=== PATIENT | female | born 1940 | race Hispanic/Latino ===

== ENCOUNTER 2018-05-22 11:48 | Inpatient (IN) | payer MEDICARE ==
[~2018-05-22] VITALS: Ht 154.9 cm; Wt 92.3 kg
[2018-05-22 12:28] LABS: BASOPHILS % (AUTO) 0.6 % (0.0-5.0); HEMATOCRIT 40.9 % (36-48); LYMPHOCYTES % (AUTO) 18.7 % (21.0-51.0); MEAN CORPUSCULAR HEMOGLOBIN 32.2 pg (27.0-33.0); MEAN CORPUSCULAR HGB CONC 33.6 g/dL (32.0-36.0); MONOCYTES % (AUTO) 10.9 % (3.0-13.0); NEUTROPHILS % (AUTO) 68.8 % (40.0-77.0); PLATELET COUNT (AUTO) 226 K/uL (130-400); RED BLOOD CELL COUNT(AUTO) 4.26 MIL/uL (4.00-5.50); RED CELL DISTRIBUTION WIDTH 12.8 % (11.0-15.5); WHITE BLOOD COUNT (AUTO) 10.8 K/uL (4.8-10.8)
[2018-05-22 12:36] LABS: CREATININE 1.4 mg/dL (0.5-1.5); POTASSIUM 3.6 mmol/L (3.5-5.1)
[2018-05-22 12:36] LABS: APPEARANCE,URINE Clear (CLEAR); BILIRUBIN,URINE Negative (NEGATIVE); COLOR,URINE Yellow (YELLOW); GLUCOSE, URINE (UA) Negative (NEGATIVE); KETONES,URINE Negative (NEGATIVE); LEUKOCYTE ESTERASE ,URINE Trace (NEGATIVE); NITRATE,URINE Negative (NEGATIVE); OCCULT BLOOD,URINE Moderate (NEGATIVE); PH,URINE 5.5 (5.0-8.0); PROTEIN,URINE Trace (NEGATIVE)
[2018-05-22 12:39] LABS: INR 0.92 (0.85-1.15); PARTIAL THROMBOPLASTIN TIME 27.7 SEC (26.3-35.5); PROTHROMBIN TIME 9.7 SEC (9.6-11.6)
[2018-05-22 12:42] LABS: ALBUMIN 3.5 g/dL (3.5-5.0); BILIRUBIN,TOTAL 0.4 mg/dL (0.2-1.0); TOTAL PROTEIN, SERUM 7.8 g/dL (6.0-8.3)
[2018-05-22 12:45] LABS: BACTERIA,URINE Rare /HPF (None Seen); SQUAMOUS EPITHELIAL CELL,UR Rare /HPF (0-2); WBC,URINE 0-1 /HPF (0-1)
[2018-05-22] MEDS ORDERED: ONDANSETRON HCL 4 MG/2 ML VIAL ONE (12:53)
[2018-05-22] MEDS ORDERED: SODIUM CHLORIDE 0.9% 1000ML 1,000 ML IV ONE (12:53)
[2018-05-22] MEDS ORDERED: MORPHINE SULFATE 4 MG/1ML SYG ONE (12:54)
[2018-05-22] MEDS ORDERED: ZOSYN 3.375GM+NS 50ML 50 ML IV ONE (14:00)
[2018-05-22] MEDS ORDERED: SODIUM CHLORIDE 0.9% 100 ML IV ONE (14:01)
[2018-05-22] MEDS ORDERED: MORPHINE SULFATE 5 MG/ML VIAL IV PRN (15:00)
[2018-05-22] MEDS ORDERED: ONDANSETRON HCL MDV 20ML 2 MG/ML VIAL IVP PRN (15:00)
[2018-05-22] MEDS ORDERED: LEVOFLOXACIN 500 MG/D5W 100 ML 100 ML ONE (16:33)
[2018-05-22 20:05] VITALS: BP 138/62
[2018-05-22] MEDS ORDERED: MORPHINE SULFATE 2 MG/ML 1ML SYG IV PRN (21:08)
[2018-05-22] MEDS: METRONIDAZOLE 500MG/100ML BAG 100 ML IV SCH (21:30)
[2018-05-22] MEDS: SODIUM CHLORIDE 0.9% 1000ML 1,000 ML IV SCH (21:30)
[2018-05-22 23:40] VITALS: BP 112/55
[2018-05-22] MEDS ORDERED: LOSA100T20 PO (23:47)
[2018-05-22] MEDS ORDERED: CETI10TA57 PO (23:47)
[2018-05-23 04:00] VITALS: BP 118/72
[2018-05-23] MEDS: METRONIDAZOLE 500MG/100ML BAG 100 ML IV SCH ×3 (04:58→20:45)
[2018-05-23 07:45] VITALS: BP_SYST 114; BP_SYST 117; BP_DIAS 51; BP_DIAS 56
[2018-05-23] MEDS: PANTOPRAZOLE SODIUM 40 MG TABLET.DR PO SCH ×2 (08:34→08:42)
[2018-05-23] MEDS: LOSARTAN 100 MG TABLET PO SCH (08:34)
[2018-05-23] MEDS ORDERED: ACETAMINOPHEN 325 MG TAB ONE (08:37)
[2018-05-23] MEDS: SODIUM CHLORIDE 0.9% 1000ML 1,000 ML IV SCH ×2 (08:41→20:45)
[2018-05-23] MEDS: ENOXAPARIN SODIUM 40 MG/0.4 ML SYRINGE SQ SCH (08:42)
[2018-05-23] MEDS ORDERED: CETIRIZINE HCL 5 MG TABLET PO PRN (09:00)
[2018-05-23 11:32] VITALS: BP 125/60
[2018-05-23 16:00] VITALS: BP 128/61
[2018-05-23] MEDS: ACETAMINOPHEN 325 MG TAB PO PRN (18:32)
[2018-05-23 19:58] VITALS: BP 153/70
[2018-05-24] VITALS (7 sets, daily range): BP systolic 104–140; BP diastolic 50–71
[2018-05-24] MEDS: METRONIDAZOLE 500MG/100ML BAG 100 ML IV SCH ×3 (04:49→21:11)
[2018-05-24 05:08] LABS: EOSINOPHILS % (AUTO) 4.9 % (0.0-8.0); MEAN CORPUSCULAR HEMOGLOBIN 32.1 pg (27.0-33.0); MEAN CORPUSCULAR HGB CONC 33.4 g/dL (32.0-36.0); MEAN CORPUSCULAR VOLUME 96.4 fL (79-99); MONOCYTES % (AUTO) 9.5 % (3.0-13.0); NEUTROPHILS % (AUTO) 41.6 % (40.0-77.0); PLATELET COUNT (AUTO) 199 K/uL (130-400); RED BLOOD CELL COUNT(AUTO) 3.63 MIL/uL (4.00-5.50); RED CELL DISTRIBUTION WIDTH 12.7 % (11.0-15.5); WHITE BLOOD COUNT (AUTO) 5.7 K/uL (4.8-10.8)
[2018-05-24 05:18] LABS: CREATININE 1.1 mg/dL (0.5-1.5); POTASSIUM 4.1 mmol/L (3.5-5.1)
[2018-05-24] MEDS: ENOXAPARIN SODIUM 40 MG/0.4 ML SYRINGE SQ SCH (08:52)
[2018-05-24] MEDS: LOSARTAN 100 MG TABLET PO SCH (08:52)
[2018-05-24] MEDS: PANTOPRAZOLE SODIUM 40 MG TABLET.DR PO SCH (08:52)
[2018-05-24] MEDS: SODIUM CHLORIDE 0.9% 1000ML 1,000 ML IV SCH ×2 (08:53→21:11)
[2018-05-24] MEDS ORDERED: LEVOFLOXACIN 500 MG/D5W 100 ML 100 ML IV SCH ×2 (09:00→19:00)
[2018-05-24] MEDS: ACETAMINOPHEN 325 MG TAB PO PRN (12:32)
[2018-05-25] MEDS: SODIUM CHLORIDE 0.9% 1000ML 1,000 ML IV SCH ×2 (02:03→12:12)
[2018-05-25 03:22] VITALS: BP 121/56
[2018-05-25] MEDS: METRONIDAZOLE 500MG/100ML BAG 100 ML IV SCH (04:57)
[2018-05-25 05:02] LABS: BASOPHILS % (AUTO) 1.2 % (0.0-5.0); EOSINOPHILS % (AUTO) 4.4 % (0.0-8.0); HEMATOCRIT 35.2 % (36-48); LYMPHOCYTES % (AUTO) 37.5 % (21.0-51.0); MEAN CORPUSCULAR HEMOGLOBIN 31.8 pg (27.0-33.0); MEAN CORPUSCULAR VOLUME 96.4 fL (79-99); MONOCYTES % (AUTO) 10.6 % (3.0-13.0); NEUTROPHILS % (AUTO) 46.3 % (40.0-77.0); PLATELET COUNT (AUTO) 185 K/uL (130-400); RED BLOOD CELL COUNT(AUTO) 3.65 MIL/uL (4.00-5.50); RED CELL DISTRIBUTION WIDTH 12.7 % (11.0-15.5); WHITE BLOOD COUNT (AUTO) 5.8 K/uL (4.8-10.8)
[2018-05-25 05:18] LABS: ALBUMIN 2.6 g/dL (3.5-5.0); BILIRUBIN,TOTAL 0.3 mg/dL (0.2-1.0); POTASSIUM 4.3 mmol/L (3.5-5.1); TOTAL PROTEIN, SERUM 6.1 g/dL (6.0-8.3)
[2018-05-25 07:00] VITALS: BP 167/85
[2018-05-25] MEDS: LOSARTAN 100 MG TABLET PO SCH (08:23)
[2018-05-25] MEDS: PANTOPRAZOLE SODIUM 40 MG TABLET.DR PO SCH (08:23)
[2018-05-25] MEDS: ENOXAPARIN SODIUM 40 MG/0.4 ML SYRINGE SQ SCH (08:24)
[2018-05-25] MEDS ORDERED: LEVO500T2 PO (08:57)
[2018-05-25] MEDS ORDERED: METR250T PO (08:57)
[2018-05-25] MEDS ORDERED: LEVOFLOXACIN 500 MG/D5W 100 ML 100 ML IV SCH ×2 (09:00)
[2018-05-25 11:00] VITALS: BP 147/79
== END 2018-05-25 13:23 | disposition home or self-care (01) | DRG 690 ==
LOC: EDH 11:48 → EDHIP 14:54 → 4CH 20:05 → 3AH 05-24 18:23
PROVIDERS: ADMIT Hospitalist; ATTEND Hospitalist
DX: N39.0 Urinary tract infection, site not specified (principal); K57.32 Diverticulitis of large intestine without perforation or abscess without bleeding; N17.9 Acute kidney failure, unspecified; I12.9 Hypertensive chronic kidney disease with stage 1 through stage 4 chronic kidney disease, or unspecified chronic kidney disease; E66.9 Obesity, unspecified; N18.9 Chronic kidney disease, unspecified; K29.70 Gastritis, unspecified, without bleeding; Z88.6 Allergy status to analgesic agent; Z88.7 Allergy status to serum and vaccine; Z68.38 Body mass index [BMI] 38.0-38.9, adult
CPT/HCPCS: 36415; 74176; 80048; 80053; 81001; 84484; 85025; 85610; 85730; 87088; 93005; J1650; J1956; J2270; J2405; J2543; J3490; J7030

== ENCOUNTER 2019-01-25 18:49 | Emergency (ER) | payer OTHER, MEDICARE ==
[~2019-01-25 18:49] MED LIST: CETI10TA57 PO; LEVO500T2 PO; LOSA100T58 PO; METR250T PO
[2019-01-25] MEDS ORDERED: SODIUM CHLORIDE 0.9% 500ML 500 ML IV ONE (19:23)
[2019-01-25 19:48] LABS: APPEARANCE,URINE CLOUDY (CLEAR); BASOPHILS % (AUTO) 0.6 % (0.0-5.0); BILIRUBIN,URINE NEGATIVE (NEGATIVE); COLOR,URINE YELLOW (YELLOW); EOSINOPHILS % (AUTO) 0.8 % (0.0-8.0); GLUCOSE, URINE (UA) NEGATIVE (NEGATIVE); HEMATOCRIT 41.8 % (36-48); KETONES,URINE NEGATIVE (NEGATIVE); LEUKOCYTE ESTERASE ,URINE LARGE (NEGATIVE); LYMPHOCYTES % (AUTO) 23.5 % (21.0-51.0); MEAN CORPUSCULAR HEMOGLOBIN 32.8 pg (27.0-33.0); MEAN CORPUSCULAR VOLUME 96.5 fL (79-99); MONOCYTES % (AUTO) 7.6 % (3.0-13.0); NEUTROPHILS % (AUTO) 67.5 % (40.0-77.0); NITRATE,URINE NEGATIVE (NEGATIVE); NUCLEATED RED BLOOD CELLS 0.1 % (0.0-0.19); OCCULT BLOOD,URINE MODERATE (NEGATIVE); PLATELET COUNT (AUTO) 223 K/uL (130-400); PROTEIN,URINE TRACE mg/dL (NEGATIVE); RED BLOOD CELL COUNT(AUTO) 4.33 MIL/uL (4.00-5.50); RED CELL DISTRIBUTION WIDTH 12.6 % (11.0-15.5); UROBILINOGEN,URINE 0.2 mg/dL (0.2-1.0); WHITE BLOOD COUNT (AUTO) 9.7 K/uL (4.8-10.8)
[2019-01-25 20:02] LABS: POTASSIUM 3.6 mmol/L (3.5-5.1)
[2019-01-25 20:03] LABS: BACTERIA,URINE Few /HPF (None Seen); MUCUS,URINE Few LPF (None Seen); SQUAMOUS EPITHELIAL CELL,UR Moderate /HPF (0-2); TRANSITIONAL EPI CELLS,URINE Rare /HPF (None Seen)
[2019-01-25 20:16] LABS: ALBUMIN 4.1 g/dL (3.5-5.0); BILIRUBIN,TOTAL 0.5 mg/dL (0.2-1.0); TOTAL PROTEIN, SERUM 8.2 g/dL (6.0-8.3)
[2019-01-25] MEDS ORDERED: AMOXICILLIN/POTASSIUM CLAV 875-125 TABLET PO ONE (20:50)
[2019-01-25] MEDS ORDERED: KETOROLAC TROMETHAMINE 15MG/ML ONE (20:50)
[2019-01-25] MEDS ORDERED: ONDANSETRON ODT 4 MG TAB ONE (20:51)
== END 2019-01-25 21:46 | disposition home or self-care (01) ==
LOC: EDH 18:49
DX: K57.32 Diverticulitis of large intestine without perforation or abscess without bleeding (principal); I10 Essential (primary) hypertension; Z88.6 Allergy status to analgesic agent; Z88.7 Allergy status to serum and vaccine
CPT/HCPCS: 36415; 74176; 80053; 81001; 82550; 83690; 84484; 85025; 96372; 99285; J1885; J7040

== ENCOUNTER → 2020-10-09 | Outpatient (CLI) | payer OTHER, MEDICARE | END | disposition home or self-care (01) | LOC: RAH 15:25 | PROVIDERS: ATTEND Internal Medicine | DX: M77.32 Calcaneal spur, left foot (principal); M85.872 Other specified disorders of bone density and structure, left ankle and foot; M25.572 Pain in left ankle and joints of left foot; M79.672 Pain in left foot | CPT/HCPCS: 73610; 73630 ==

== ENCOUNTER 2022-10-02 08:22 | Emergency (ER) | payer OTHER, MEDICARE ==
[~2022-10-02] VITALS: Ht 160 cm; Wt 90.7 kg
[2022-10-02] MEDS ORDERED: MORPHINE 2 MG SYG IVP ONE (09:00)
[2022-10-02] MEDS ORDERED: ONDANSETRON 4MG INJ IVP ONE (09:00)
[2022-10-02] MEDS ORDERED: PANTOPRAZOLE 40 MG/VIAL IVP ONE (09:00)
[2022-10-02] MEDS ORDERED: LACTATED RINGERS 1000ML 1,000 ML IV ONE (09:00)
[2022-10-02 09:06] LABS: BASOPHILS % (AUTO) 0.5 % (0.0-5.0); EOSINOPHILS % (AUTO) 1.1 % (0.0-8.0); HEMATOCRIT 42.1 % (36-48); LYMPHOCYTES % (AUTO) 20.8 % (21.0-51.0); MEAN CORPUSCULAR HEMOGLOBIN 31.5 pg (27.0-33.0); MEAN CORPUSCULAR HGB CONC 32.1 g/dL (32.0-36.0); MEAN CORPUSCULAR VOLUME 98.1 fL (79-99); MONOCYTES % (AUTO) 7.8 % (3.0-13.0); NEUTROPHILS % (AUTO) 69.4 % (40.0-77.0); PLATELET COUNT (AUTO) 222 K/uL (130-400); RED BLOOD CELL COUNT(AUTO) 4.29 MIL/uL (4.00-5.50); RED CELL DISTRIBUTION WIDTH 12.1 % (11.0-15.5); WHITE BLOOD COUNT (AUTO) 8.3 K/uL (4.8-10.8)
[2022-10-02 09:09] LABS: APPEARANCE,URINE CLEAR (CLEAR); BILIRUBIN,URINE NEGATIVE (NEGATIVE); COLOR,URINE LIGHT-YELLOW (YELLOW); GLUCOSE, URINE (UA) NEGATIVE (NEGATIVE); KETONES,URINE NEGATIVE (NEGATIVE); LEUKOCYTE ESTERASE ,URINE NEGATIVE Leu/uL (NEGATIVE); NITRATE,URINE NEGATIVE (NEGATIVE); OCCULT BLOOD,URINE SMALL (NEGATIVE); PH,URINE 5.5 (5.0-8.0); PROTEIN,URINE NEGATIVE (NEGATIVE); UROBILINOGEN,URINE 0.2 mg/dL (0.2-1.0)
[2022-10-02 09:23] LABS: ALBUMIN 3.8 g/dL (3.5-5.0); TOTAL PROTEIN, SERUM 7.8 g/dL (6.0-8.3)
[2022-10-02 09:30] LABS: BACTERIA,URINE FEW /HPF (None Seen); MUCUS,URINE RARE LPF (None Seen); SQUAMOUS EPITHELIAL CELL,UR RARE /HPF (0-2); WBC,URINE 0-1 /HPF (0-1)
[2022-10-02] MEDS ORDERED: IOHEXOL 350 MG/ML 100ML INFUS..BTL IV ONE (10:07)
[2022-10-02] MEDS ORDERED: ZOSYN 3.375GM +NS 50ML IVPB STA (10:56)
[2022-10-02 11:07] VITALS: BP 145/76
[2022-10-02] MEDS ORDERED: METR-172 PO (11:21)
[2022-10-02] MEDS ORDERED: CIPR-278 PO (11:21)
== END 2022-10-02 12:29 | disposition home or self-care (01) ==
LOC: EDH 08:22
DX: K57.32 Diverticulitis of large intestine without perforation or abscess without bleeding (principal); N28.1 Cyst of kidney, acquired; Z79.899 Other long term (current) drug therapy; Z88.6 Allergy status to analgesic agent; Z88.7 Allergy status to serum and vaccine; Z88.8 Allergy status to other drugs, medicaments and biological substances
CPT/HCPCS: 99285; 74176; 96365; 96375; 96361; 82550; 84484; 80053; 83690; 85025; 81001; 36415; J7120; J2405; J2543; C9113; Q9967

== ENCOUNTER → 2023-03-10 | Outpatient (CLI) | payer OTHER, MEDICARE ==
[~2023-03-10] MED LIST changes: +CIPR-278 PO; -LOSA100T58 PO; +LOSA100T59 PO; +METR-172 PO
== END | disposition home or self-care (01) ==
LOC: RAH 09:49
PROVIDERS: ATTEND Internal Medicine
DX: R06.02 Shortness of breath (principal); I10 Essential (primary) hypertension
CPT/HCPCS: 71046

== ENCOUNTER → 2024-08-04 | Outpatient (CLI) | payer OTHER, MEDICARE ==
--- NOTE | 2024-08-04 16:50 | HMCIMG ---
CHEST 2VWS HISTORY: Dyspnea COMPARISON: 03/10/2023 FINDINGS: Frontal and lateral projections of the chest were obtained. There is no acute pulmonary infiltrates or failure. The heart is not enlarged. Prominent interstitial markings are seen. There is mild aortic calcification. Degenerative changes are seen of the thoracolumbar spine. IMPRESSION: 1. No acute pulmonary infiltrates.
== END | disposition home or self-care (01) ==
LOC: RAH 12:46
PROVIDERS: ATTEND Nurse Practitioner Family
DX: J84.9 Interstitial pulmonary disease, unspecified (principal); R06.09 Other forms of dyspnea; I35.8 Other nonrheumatic aortic valve disorders; M47.815 Spondylosis without myelopathy or radiculopathy, thoracolumbar region
CPT/HCPCS: 71046

== ENCOUNTER → 2024-09-08 | Outpatient (CLI) | payer OTHER, MEDICARE ==
--- NOTE | 2024-09-08 15:19 | HMCIMG ---
CT CHEST W/O CONTRAST HISTORY: Signs and symptoms involving the circulatory and respiratory system. COMPARISON: None TECHNIQUE: Multiple sequential axial images of the chest were obtained from the thoracic inlet through upper abdomen. Patient was not given contrast through intravenous route. FINDINGS: There is no evidence of pulmonary nodule or parenchymal disease. There are mild interstitial fibrosis. There may be bilateral parapelvic renal cysts. Coronary arterial calcifications are seen. No pleural effusion or pericardial effusion is seen. There is no evidence of pneumothorax. There are normal size mediastinal and hilar lymph nodes. The heart is not enlarged. Degenerative changes of the thoracolumbar spine are present. There is no evidence of adrenal nodule. IMPRESSION: 1. No evidence of pulmonary nodule or effusion is seen. Mild interstitial fibrosis. CT was performed with one or more following dose reduction techniques: automated exposure control, adjustment of the mA and kv according to patient's size, or use of a iterative reconstruction technique.
== END | disposition home or self-care (01) ==
LOC: CANSCHCLI → RAH 13:52
PROVIDERS: ATTEND Internal Medicine
DX: J84.10 Pulmonary fibrosis, unspecified (principal); I25.10 Atherosclerotic heart disease of native coronary artery without angina pectoris; R09.89 Other specified symptoms and signs involving the circulatory and respiratory systems; Z87.891 Personal history of nicotine dependence; M47.815 Spondylosis without myelopathy or radiculopathy, thoracolumbar region
CPT/HCPCS: 71250

== ENCOUNTER → 2024-11-30 | Outpatient (CLI) | payer MEDICARE, OTHER ==
[~2024-11-30] MED LIST changes: +DiphenhydrAMINE HCL 50 MG/ML VIAL ONE; +IOHEXOL 350 MG/ML 100ML INFUS..BTL IV ONE; +Solu-medROL 125MG VIAL ONE; +metoPROLOL tartRATE 1 MG/ML 5ML VIAL IV ONE
--- NOTE | 2024-11-30 15:11 | HMCIMG ---
CT CARDIAC ANGIO W/CONT. CCTA HISTORY: Chest pain COMPARISON: None TECHNIQUE: Multiple sequential axial images of the chest were obtained along with the CT angiogram of the chest study. Patient was given 100 cc of Omnipaque through intravenous route. FINDINGS: There is no evidence of pulmonary nodule or parenchymal disease. No pleural effusion or pericardial effusion is seen. There is no evidence of pneumothorax. There are normal size mediastinal and hilar lymph nodes. The heart is not enlarged. Degenerative changes of the thoracolumbar spine are present. IMPRESSION: 1. No evidence of pulmonary nodule or effusion is seen. Please see CT angiogram report of coronary arteries.
== END | disposition home or self-care (01) ==
LOC: RAH 09:41
PROVIDERS: ATTEND Student in an Organized Health Care Education/Training Program
DX: R07.9 Chest pain, unspecified (principal); M47.815 Spondylosis without myelopathy or radiculopathy, thoracolumbar region
CPT/HCPCS: 75574; J2919; J1200; J3490 ×2; Q9967

== ENCOUNTER → 2024-12-02 | Outpatient (CLI) | payer OTHER ==
[~2024-12-02] MED LIST changes: -DiphenhydrAMINE HCL 50 MG/ML VIAL ONE; -IOHEXOL 350 MG/ML 100ML INFUS..BTL IV ONE; -Solu-medROL 125MG VIAL ONE; -metoPROLOL tartRATE 1 MG/ML 5ML VIAL IV ONE
--- NOTE | 2024-12-07 19:28 | CARDIOLOGY ---
RAD REPORT: CORNARY CT ANGIO RADIOLOGY REPORT: CORONARY CT ANGIOGRAPHY DATE: Dec 07, 2024 QUALITY: Excellent CLINICAL HISTORY AND INDICATION: [ coronary calcification ] TECHNIQUE: After obtaining a preliminary geological scout image, contrast imaging performed on an [place] [id number] scanner. A dedicated, limited window, coronary imaging protocol was used, with single breath-hold, retrospective ECG gating, and automated arrhythmia rejection. 100 cc of low osmolar contrast agent: Omnipaque 350 was delivered via a 18-gauge IV catheter in the right antecubital fossa, using a power injector and followed by 60 cc of normal saline bolus as a chaser. Collimated images were reformatted at 0.5 mm intervals, and sent to an offline independent workstation for interpretation, using 3D anatomic reconstructions: Curved multiplanar reconstructions, maximum intensity projections, and multiplanar imaging. 10 mg IV metoprolol was administered prior to scanning. 0.8 mg SL nitroglycerin was given. CORONARY ARTERY DESCRIPTIONS: The coronary arteries arise in normal position. Left main coronary artery: Normal caliber vessel that bifurcates into the LAD and LCx. No stenosis. Left anterior descending coronary artery: Normal caliber vessel and gives rise to diagonal and septal branches. No stenosis. Left circumflex coronary artery: Normal caliber, nondominant and gives rise to a large OM branch. No stenosis. Right coronary artery: Large, dominant vessel giving rise to the PL and PDA branches. No stenosis. CAD-RADs: 0, absence of CAD. Thoracic Aorta: Normal diameter. Pam Barahona MD Cardiovascular Disease [facility] PAM BARAHONA MD Dec 07, 2024 19:28
--- NOTE | 2024-12-08 11:55 | HMCSR ---
APPROVED REPORT Laterality: Bilateral Indications Atherosclerosis VELOCITY AND DOPPLER WAVEFORM ANALYSIS TELECOM MANAGER (R) 111.1cm/sec, Triphasic, TELECOM MANAGER (L) 169.7cm/sec, Triphasic, Prof Fem Art. (R) 72.7cm/sec, Triphasic, Prof Fem Art. (L) 76.3cm/sec, Triphasic, Fem Art Prox. (R) 136.7cm/sec, Triphasic, Fem Art Prox. (L) 132.5cm/sec, Triphasic, Fem Art Mid. (R) 106.5cm/sec, Triphasic, Fem Art Mid. (L) 96.0cm/sec, Triphasic, Fem Art Dist (R) 82.5cm/sec, Triphasic, Fem Art Dist. (L) 107.7cm/sec, Triphasic, Pop Art(AK) (R) 64.2cm/sec, Biphasic, Pop Art (AK) (L) 64.4cm/sec, Biphasic, Pop Art (Fossa)(R) 54.5cm/sec, Biphasic, Pop Art (Fossa) (L) 65.3cm/sec, Biphasic, Pop Art(BK) (R) 78.3cm/sec, Biphasic, Pop Art (BK) (L) 58.7cm/sec, Biphasic, GAMBRELER HELPER Dist. (R) 90.3cm/sec, Biphasic, GAMBRELER HELPER Dist. (L) 53.0cm/sec, Biphasic, Per Art Dist. (R) 61.4cm/sec, Biphasic, Per Art Dist. (L) 66.1cm/sec, Biphasic, SEAN Dist. (R) 67.1cm/sec, Biphasic, SEAN Dist. (L) 74.2cm/sec, Biphasic, Technologist Impression No evidence of significant arterial insufficiency of bilateral lower extremities. Multiphasic waveforms seen in the bilateral lower extremities. Conclusion No evidence of significant arterial insufficiency of bilateral lower extremities. Multiphasic waveforms seen in the bilateral lower extremities. Conclusion No evidence of significant arterial insufficiency of bilateral lower extremities. Multiphasic waveforms seen in the bilateral lower extremities.
--- NOTE | 2024-12-08 12:00 | HMCSR ---
APPROVED REPORT EXAM: Two-dimensional and M-mode echocardiogram with Doppler and color Doppler. INDICATION ICD: R06.00 Dyspnea 2D Dimensions RVDd3.7 cmLVEF(%)41.5 (>50%)LVED Vol(simp.)93.0 mL IVSd1.1 (0.7-1.1cm)FS(%)20 %LVES Vol(simp.)53.0 mL LVDd4.6 (3.8-5.6cm)Ao Root(2D)3.1 (2.0-3.7cm)LVEF(%, simp.)43 % PWd0.9 (0.7-1.1cm)LVOT diam1.8 (1.8-2.4cm)LA ESV INDEX (BP)46.11 mL/m2 LVDs3.7 (2.5-4.0cm)IVC diam1.9 cm Aortic Valve AoV Vmax1.4 m/Princess Peak GR8.3 mmHgLVOT Vmax0.8 m/s AoV VTI0.3 mAo Mean GR4.1 mmHgLVOT VTI0.21 m CHEY (VMAX)1.6 cm2Al P1/2T763 msAVA (VTI) 1.6 cm2 Mitral Valve MV E Wbpy687.0 cm/sDECEL Aomj682 msMV Peak GR8 mmHg MV A Bccv370.5 cm/sP 1/2 T65 msMV Mean GR3 mmHg E/A ratio0.9MVA (PHT)3.4 cm2MVA (VTI)1.4 cm2 MR Max PG94 mmHg TDI E/E' Wlkmvd00.9E/E' Waemxuu50.9 Pulmonary Valve PV Vmax0.9 m/sPV VTI0.26 mPV Mean GR2 mmHg PV Peak GR3.3 mmHgPI End Susi. Klever 0.9 cm/s Tricuspid Valve TR Vmax2.6 m/sRAP (EST) 8 bbRzPEQZ98.7 mmHg TR Peak GR26.7 mmHg Left Ventricle Left ventricular cavity size is normal. There is borderline to mild left ventricular hypertrophy. LVE F is 40-45%. Grade 1 diastolic dysfunction. Right Ventricle The right ventricle is normal size. Right ventricular systolic function is mildly reduced. Atria The left atrium is moderately dilated. The right atrium size appears normal. Aortic Valve Aortic valve is trileaflet. Aortic valve leaflets are sclerotic but open well. Trace aortic regurgita tion. Calculated aortic valve area is 1.6 cm2 with maximum pressure gradient of 8 mmHg and mean press ure gradient of 4 mmHg. Mitral Valve Mitral annular calcification is moderate. Mitral valve leaflets are sclerotic but open well. Mitral r egurgitation is mild. Calculated mitral valve area is 1.4 cm2 with maximum pressure gradient of 8 mmH g and mean pressure gradient of 3 mmHg. Tricuspid Valve The tricuspid valve leaflets appear normal. There is trace to mild tricuspid regurgitation. Right violet tricular systolic pressure is estimated at 30-40 mmHg. Pulmonic Valve The pulmonic valve leaflets appears normal. There is trace pulmonic valvular regurgitation. Great Vessels The aortic root appears normal in size. The IVC is normal in size and collapses >50% with inspiration . Pericardium No pericardial effusion. Conclusion Left ventricular cavity size is normal. LVEF is 40-45%. Grade 1 diastolic dysfunction. The right ventricle is normal size. Right ventricular systolic function is mildly reduced. The left atrium is moderately dilated. The right atrium size appears normal. Mitral regurgitation is mild. There is trace to mild tricuspid regurgitation. Right ventricular systolic pressure is estimated at 30-40 mmHg. No pericardial effusion.
== END | disposition home or self-care (01) ==
LOC: SHCH 08:55
PROVIDERS: ATTEND Student in an Organized Health Care Education/Training Program
DX: I08.3 Combined rheumatic disorders of mitral, aortic and tricuspid valves (principal); R06.09 Other forms of dyspnea; I70.203 Unspecified atherosclerosis of native arteries of extremities, bilateral legs; I70.219 Atherosclerosis of native arteries of extremities with intermittent claudication, unspecified extremity
CPT/HCPCS: 93306; 93925

== ENCOUNTER → 2025-01-11 | Outpatient (CLI) | payer OTHER ==
[~2025-01-11] MED LIST changes: +GADOTERATE MEGLUMINE 10 MMOL/20 ML VIAL IV ONE
--- NOTE | 2025-01-11 15:27 | HMCIMG ---
Exam Type: MR BRAIN WWO CON Clinical Information: R56.9 Unspecified convulsions Comparison: None Technique: T1 weighed sagittal, T1-weighted axial, T2-weighted axial, diffusion, apparent diffusion, exponential diffusion weighted axial, T2-weighted FLAIR sagittal, coronal and axial images of the brain. Findings: Examination done after the administration of Clariscan, 15 cc IV, no complications. CSF spaces are preserved. Ventricular spaces are preserved as well. Multiple punctate and patchy foci of increased signal T2-weighted FLAIR images scattered diffusely throughout the deep white matter centrum semiovale and coronal radiata on the T2-weighted FLAIR images, consistent with chronic small vessel ischemic changes. No similar-appearing focus present within the deep white matter of the cerebellum or brainstem. No acute intra-or extra-axial fluid collections are seen. There is no mass effect or shift of midline structures. Diffusion-weighted sequences demonstrate no evidence of acute pathology. Specifically, there is no evidence of acute TIA or stroke. The pituitary gland is unremarkable. The stalk is midline and the sella turcica shows no significant abnormalities. The signal intensity of the skull base and the marrow of the actual bony structures of the skull are unremarkable. The acoustic canals show no significant abnormalities. The orbits and the eye globes are preserved. The paranasal sinuses are clear. After contrast administration, there is no abnormal enhancement. IMPRESSION: 1. CHRONIC SMALL VESSEL ISCHEMIC CHANGES. NO ACUTE INFARCTS OR ISCHEMIC EVENTS NOTED AT THIS TIME.
== END | disposition home or self-care (01) ==
LOC: RAH 12:00
PROVIDERS: ATTEND Psychiatry & Neurology Neurology
DX: I67.82 Cerebral ischemia (principal); R56.9 Unspecified convulsions
CPT/HCPCS: 70553; A9575

== ENCOUNTER 2025-02-02 01:08 | Inpatient (IN) | payer OTHER, MEDICAID ==
[~2025-02-02] VITALS: Ht 154.9 cm; Wt 90.3 kg
[~2025-02-02 01:08] MED LIST changes: -GADOTERATE MEGLUMINE 10 MMOL/20 ML VIAL IV ONE
[2025-02-02 01:31] LABS: BASOPHILS # (AUTO) 0.04 K/uL (0.00-0.20); BASOPHILS % (AUTO) 0.5 % (0.0-5.0); EOSINOPHILS # (AUTO) 0.17 K/uL (0.00-0.70); EOSINOPHILS % (AUTO) 2.2 % (0.0-8.0); HEMATOCRIT 40.4 % (36-48); IMMATURE GRANULOCYTE ABSOLUTE 0.01 K/uL (0-1); LYMPHOCYTES # (AUTO) 2.6 K/uL (1.0-4.8); LYMPHOCYTES % (AUTO) 33.6 % (21.0-51.0); MEAN CORPUSCULAR HEMOGLOBIN 32.4 pg (27.0-33.0); MEAN CORPUSCULAR HGB CONC 32.9 g/dL (32.0-36.0); MEAN CORPUSCULAR VOLUME 98.5 fL (79-99); MONOCYTES # (AUTO) 0.8 K/uL (0.1-1.0); MONOCYTES % (AUTO) 10.2 % (3.0-13.0); NEUTROPHILS # (AUTO) 4.1 K/uL (1.8-7.7); NEUTROPHILS % (AUTO) 53.4 % (40.0-77.0); PLATELET COUNT (AUTO) 249 K/uL (130-400); RED CELL DISTRIBUTION WIDTH 12.5 % (11.0-15.5); WHITE BLOOD COUNT (AUTO) 7.7 K/uL (4.8-10.8)
[2025-02-02 01:39] LABS: CREATININE 1.2 mg/dL (0.5-1.0); POTASSIUM 4.5 mmol/L (3.5-5.1)
[2025-02-02 01:57] LABS: B-TYPE NATRIURETIC PEPTIDE 69 pg/mL (0-100)
--- NOTE | 2025-02-02 02:06 | ERN ---
General Chief Complaint: Shortness of Breath Stated Complaint: HEART RATE 50'S, HIGH B/P, SHORTNESS OF BREATH Time Seen by MD: 01:23 Source: patient, family History of Present Illness Initial Comments Patient is an 84-year-old female who has a past medical history of hypertension and atrial fibrillation. She recently had her medications readjusted by her user support analyst supervisor. She was taking amiodarone 200 mg a day and that was decreased to 100 mg a day. Her losartan was stopped and she was placed on telmisartan. She was also started on metoprolol 25 mg q.a.m.. She was given strict instructions to come to the emergency room if her heart rate fell below 60. The patient's heart rate fell down below 50 and so her family brought her here for evaluation. Currently the patient is in normal sinus rhythm at a rate of 56 with no ischemic changes. Allergies: Coded Allergies: aspirin (Unverified Allergy, Unknown, 05/22/18) iodine (Unverified Allergy, Unknown, HALLUCINATIONS, 10/02/22) tetanus toxoid, adsorbed (Unverified Allergy, Unknown, 05/22/18) Home Meds Active Scripts Metronidazole (Metronidazole) 500 Mg Tablet, 500 MG PO BID for 7 Days, #14 TAB Prov:ANKIT RIVAS MD 10/02/22 Ciprofloxacin HCl (Cipro) 500 Mg Tablet, 500 MG PO BID for 7 Days, #14 TAB Prov:ANKIT RIVAS MD 10/02/22 Metronidazole (Flagyl) 250 Mg Tablet, 250 MG PO TID for 5 Days, #15 TAB Prov:DONATO CHRISTY 05/25/18 Levofloxacin (Levaquin) 500 Mg Tablet, 500 MG PO DAILY for 5 Days, #5 TAB Prov:DONATO CHRISTY 05/25/18 Reported Medications Cetirizine HCl (Cetirizine HCl) 10 Mg Tablet, 10 MG PO HSPRN PRN for ITCHING, TAB 05/22/18 Losartan Potassium (Losartan Potassium) 100 Mg Tablet, 100 MG PO DAILY, TAB 05/22/18 Past Medical History Past Medical History: A-Fib, Hypertension Past Surgical History: None Social History Social History: Negative Constitutional: (-) chills, (-) diaphoresis, (-) fever, (-) malaise, (-) weakness, (-) other documentation EENTM: (-) eye pain, (-) blurred vision, (-) tearing, (-) double vision, (-) ear pain, (-) ear discharge, (-) nose pain, (-) nose congestion, (-) throat pain, (-) Throat swelling, (-) mouth pain, (-) tooth pain, (-) mouth swelling, (-) other documentation Respiratory: (-) cough, (-) orthopnea, (-) short of breath, (-) stridor, (-) wheezing, (-) other documentation Cardiovascular: (-) chest pain, (-) edema, (-) palpitations, (-) syncope, (-) dyspnea on exertion, (-) other documentation Gastrointestinal/Abdominal: (-) nausea, (-) vomiting, (-) diarrhea, (-) abdominal pain, (-) abdominal distention, (-) constipation, (-) rectal bleeding, (-) dark stool/melena, (-) other documentation Musculoskeletal: (-) Neck pain, (-) back pain, (-) Flank Pain, (-) joint pain, (-) joint swelling, (-) muscle pain, (-) muscle stiffness, (-) gout, (-) other documentation Skin: (-) laceration, (-) contusion, (-) abrasion, (-) abscess, (-) rash, (-) change in color, (-) change in hair, (-) change in nails, (-) diaphoresis, (-) dryness, (-) other documentation Neuro: (-) altered mental status, (-) headache, (-) syncope, (-) paralysis, (-) numbness, (-) seizure, (-) pre-existing deficit, (-) tremors, (-) weakness, (-) dizziness, (-) slurred speech, (-) vertigo, (-) other documentation Physical Exam General Appearance: (+) no apparent distress Orientation: (+) alert, (+) oriented x 3 Head/Face Trauma: No Eye: bilateral eye normal inspection, bilateral eye PERRL, bilateral eye EOMI Ear, Nose, Throat: (+) hearing grossly normal, (+) normal ENT inspection Neck: (+) normal inspection, (+) supple, (+) no JVD Respiratory: (+) chest non-tender, (+) lungs clear, (+) well ventilated Heart: (+) regular, (+) no gallop, (+) murmur Vascular: (+) no edema Gastrointestinal: (+) soft, (+) non-tender Results Laboratory and Microbiology Lab and Micro Result Laboratory Tests Test 02/02/25 01:22 White Blood Count 7.7 K/uL (4.8-10.8) Red Blood Count 4.10 MIL/uL (4.00-5.50) Hemoglobin 13.3 g/dL (12.0-16.0) Hematocrit 40.4 % (36-48) Mean Corpuscular Volume 98.5 fL (79-99) Mean Corpuscular Hemoglobin 32.4 pg (27.0-33.0) Mean Corpuscular Hemoglobin Concent 32.9 g/dL (32.0-36.0) Red Cell Distribution Width 12.5 % (11.0-15.5) Platelet Count 249 K/uL (130-400) Mean Platelet Volume 11.3 fL (7.5-10.5) H Immature Granulocyte % (Auto) 0.1 % (0-1) Neutrophils (%) (Auto) 53.4 % (40.0-77.0) Lymphocytes (%) (Auto) 33.6 % (21.0-51.0) Monocytes (%) (Auto) 10.2 % (3.0-13.0) Eosinophils (%) (Auto) 2.2 % (0.0-8.0) Basophils (%) (Auto) 0.5 % (0.0-5.0) Neutrophils # (Auto) 4.1 K/uL (1.8-7.7) Lymphocytes # (Auto) 2.6 K/uL (1.0-4.8) Monocytes # (Auto) 0.8 K/uL (0.1-1.0) Eosinophils # (Auto) 0.17 K/uL (0.00-0.70) Basophils # (Auto) 0.04 K/uL (0.00-0.20) Absolute Immature Granulocyte (auto 0.01 K/uL (0-1) Nucleated Red Blood Cells 0.0 % (0.0-0.19) Sodium Level 140 mmol/L (136-145) Potassium Level 4.5 mmol/L (3.5-5.1) Chloride Level 105 mmol/L (101-111) Carbon Dioxide Level 28 mmol/L (21-32) Blood Urea Nitrogen 16 mg/dL (7-18) Creatinine 1.2 mg/dL (0.5-1.0) H Glomerular Filtration Rate Calc 44 mL/min (>90) Random Glucose 108 mg/dL (70-105) H Total Calcium 9.4 mg/dL (8.5-10.1) Total Creatine Kinase 235 U/L (21-232) #H Troponin I High Sensitivity 20 ng/L (4-50) B-Type Natriuretic Peptide 69 pg/mL (0-100) MDM A standard cardiac labs have been sent. Chest x-ray ordered. I have talked to the patient's daughter as the patient seems fine except for high blood pressure. I would hate to admit the patient to the hospital simply because a drop in her heart rate that is clinically without consequences. I will try giving the patient some IV hydralazine for her blood pressure. I have discussed the patient with Dr. Sol as who is on-call for the patient's user support analyst supervisor who is Dr. Barahona. He recommends holding the metoprolol as the patient's heart rate is now below 55. We can increase the telmisartan by 20 mg, or start amlodipine 5 mg. I I further discussed the patient with the hospitalist who have agreed to admit the patient and watch her vital signs while we make these medication changes, mainly because current heart patient's heart rate is now in the low 50s. ED Course Orders Procedure Category Date Status Time Vital Signs Per CPOE 02/02/25 Transmitted Routine 01:23 B-Type Natriuretic LAB 02/02/25 Complete Peptide 01:23 Chest 1vw RAD 02/02/25 Taken 01:23 12 Lead Ekg Tracing- EKG 02/02/25 Logged Technical 01:23 Oxygen By Nc/Pulse Ox CPOE 02/02/25 Transmitted 01:23 Maintain Iv CPOE 02/02/25 Transmitted 01:23 Iv Insertion CPOE 02/02/25 Transmitted 01:23 Cardiac Monitoring CPOE 02/02/25 Transmitted 01:23 Pulse Oximetry With CPOE 02/02/25 Transmitted Vs And Prn 01:23 Cbc With Differential LAB 02/02/25 Complete 01:23 Activity: Br W/Brp CPOE 02/02/25 Transmitted With Assist 01:23 Creatine Kinase, Total LAB 02/02/25 Complete 01:23 Troponin I High LAB 02/02/25 Complete Sensitivity 01:23 Urinalysis Profile LAB 02/02/25 Logged 01:23 Basic Metabolic Panel LAB 02/02/25 Complete 01:23 Hydralazine 20mg Inj PHA 02/02/25 Complete (Apresoline 20mg In 02:30 Current Medications Medications (Trade) Dose Ordered Sig/Shelli Route PRN Reason Start Time Stop Time Status Last Admin Dose Admin Hydralazine HCl (APRESOLine 20MG INJ) 20 mg ONCE ONCE IV 02/02/25 02:30 02/02/25 02:36 DC Vital Signs Date Time Temp Pulse Resp B/P (MAP) Pulse Ox O2 Delivery O2 Flow Rate FiO2 02/02/25 02:46 98.6 48 20 161/64 99 Room Air* 0 N/A Nasal Cannula* 02/02/25 01:55 98.4 52 18 158/76 98 Room Air* 0 21 Nasal Cannula* 02/02/25 01:09 98.2 60 20 186/69 98 Room Air 0 DX & DISP Disposition: Inpatient Departure Impression: Primary Impression: Bradycardia Additional Impression: Hypertension Condition: Stable Referrals: OWEN MOSES MD (PCP) SONY RAMIRES MD Feb 02, 2025 02:06
[2025-02-02] MEDS: acetaMINOPHEN 500 MG TABLET PO ONE (03:57)
[2025-02-02] MEDS: hydrALAZine 20MG/ML VIAL IV ONE (03:58)
--- NOTE | 2025-02-02 04:04 | NUR ---
JANIS PASTRANA AT BEDSIDE TO EVALUATE PATIENT FOR ADMISSION PER JANIS AUTOMATIC SERGING MACHINE OPERATOR HOLD HYDRALAZINE AT THIS TIME AND ONLY ADMINISTER IF SYSTOLIC BP IS GREATER THAN 170 SYSTOLIC
--- NOTE | 2025-02-02 04:25 | HP ---
[facility] HISTORY AND PHYSICAL Date of Service: Feb 02, 2025 Time of Service: 04:25 Attending/supervising physician: Dr. Garcia and Dr. Barahona PCP: Dr. Ambrose Prince Outpatient specialist: [facility] HISTORY OF PRESENT ILLNESS: Ms. López is a 84-year-old female with a history of hypertension and AFib who presented to [facility] ED for evaluation of symptomatic bradycardia and hypertension. Daughter at bedside reported that her medications were readjusted by her ten pin bowling centre manager. She was taking amiodarone 200 mg a day and was decreased to 100 mg a day due to the amiodarone causing the patient to have a shaking side effects. Her losartan was stopped and she was placed on telmisartan. The patient was restarted on metoprolol after Dr. Barahona had removed it. The daughter at bedside reported that she is to take [id number] mg in the morning and if her blood pressure and heart rate are still high she could take metoprolol in the evening also. The daughter reported that her sister was giving the [id number] mg twice a day, and she gave it last night on 02/01/2025. The daughter reported she was given strict instructions to return t o the ED if her heart rate falls below 60 beats per minute. The patient's heart rate went down to 50s, and fell sick, therefore her daughter brought her for evaluation. On arrival to ED the patient's heart rate was 56 bpm, but dropped as low as 40s (44 bpm). EKG: Sinus bradycardia, heart rate 56 bpm. Off note: The patient was recently admitted to [facility] [place] on 12/07/24 for seizure like activity by the BIS team. She was placed on Keppra. Later she was told that the shaking was caused by amiodarone, for which amiodarone was decreased. The patient was discharged on 12/13/24 from [facility]. Daughter reports that she saw Dr. Uri López, neurologist as outpatient. The patient had negative EEG and neurological studies and the patient was taken off of Keppra. Vital signs on arrival: BP 186/69, heart rate 60, respirations 20, 98% on room air. ED administered hydralazine 20 mg IV. ED physician spoke to Dr. Sol, ten pin bowling centre manager on-call for Dr. Barahona. He recommended holding the metoprolol as these patient's heart rate is now 55 bpm. Increase telmisartan by 20 mg or start amlodipine 5 mg. ED provider request patient be admitted with the diagnosis of bradycardia and hypertension. I assessed the patient at bedside. The patient was sleeping, breathing was even, unlabored, in no distress. The patient was on continuous satellite project site monitor. Blood pressure was 170s systolic and heart rate 54. The daughter was at bedside. She reported the patient has been complaining of a headache. The patient reported that her blood pressure went up as high as 200 systolics and her heart rate was 52. The daughter reports that the patient is frustrated with the uncontrolled blood pressure and the hypotension. Daughter reports that the patient stated she wants to just not take any other blood pressure medications to flush out her system. Education was done on compliance with medications and to inform PCP before she makes medication adjustments. The patient denied chest pain, shortness of breath, any other pain, problem or concern. I informed the patient daughter of plan of care. They verbalized understanding and are in agreement with the plan. Plan and assessment are listed below. Addendum: Reassessed vital signs at the end of my shift 6 am. Blood pressure improved to 132/60 with a hydralazine IV administer by ED. Heart rate was 44 bpm, respirations 18, 96% on room air. REVIEW OF SYSTEMS 12-point ROS reviewed with the patient. All pertinent positives mentioned above. Otherwise negative, noncontributory, non-pertinent. PAST MEDICAL HISTORY: As mentioned above PAST SURGICAL HISTORY: None PAST SOCIAL HISTORY: Patient denied alcohol, tobacco, illicit drug use. FAMILY HISTORY: Obesity Coded Allergies: aspirin (Unverified Allergy, Unknown, 05/22/18) iodine (Unverified Allergy, Unknown, HALLUCINATIONS, 10/02/22) tetanus toxoid, adsorbed (Unverified Allergy, Unknown, 05/22/18) PHYSICAL EXAM GENERAL APPEARANCE: The patient is awake, alert, and oriented, in no acute cardiopulmonary distress. NEUROLOGICAL: Cranial nerves II-XII grossly intact. Motor is 5/5 in bilateral upper and lower extremities proximal to distal. No sensory deficits. HEENT: Face is symmetric. Pupils are equal and reactive. Extraocular movements are intact. NECK: Supple. No JVD. No thyromegaly. No submental, submandibular, pre- /postauricular, occipital or supraclavicular lymphadenopathy. CHEST: Normal chest expansion. No Telemetry. LUNGS: Absence of any rales, rhonchi or any wheezing. CARDIOVASCULAR: Regular. S1 and S2 normal. No appreciable rubs, murmurs or gallops. ABDOMEN: Obese. Soft, nontender, and nondistended. There is no rebound, voluntary guarding, or rigidity. : Deferred. No Jolly. EXTREMITIES: Non-edematous and not cyanotic. No clubbing. Good capillary refill. SKIN: No skin breakdown. Vital Sign (Last 24 Hours) 02/02/25 03:44 Temp 98.4 Pulse 49 Resp 19 B/P (MAP) 159/64 Pulse Ox 97 O2 Delivery Room Air* Nasal Cannula* O2 Flow Rate 0 FiO2 N/A LABS: Laboratory: Test 02/02/25 01:22 Range/Units White Blood Count 7.7 4.8-10.8 K/uL Red Blood Count 4.10 4.00-5.50 MIL/uL Hemoglobin 13.3 12.0-16.0 g/dL Hematocrit 40.4 36-48 % Mean Corpuscular Volume 98.5 79-99 fL Mean Corpuscular Hemoglobin 32.4 27.0-33.0 pg Mean Corpuscular Hemoglobin Concent 32.9 32.0-36.0 g/dL Red Cell Distribution Width 12.5 11.0-15.5 % Platelet Count 249 130-400 K/uL Mean Platelet Volume 11.3 H 7.5-10.5 fL Immature Granulocyte % (Auto) 0.1 0-1 % Neutrophils (%) (Auto) 53.4 40.0-77.0 % Lymphocytes (%) (Auto) 33.6 21.0-51.0 % Monocytes (%) (Auto) 10.2 3.0-13.0 % Eosinophils (%) (Auto) 2.2 0.0-8.0 % Basophils (%) (Auto) 0.5 0.0-5.0 % Neutrophils # (Auto) 4.1 1.8-7.7 K/uL Lymphocytes # (Auto) 2.6 1.0-4.8 K/uL Monocytes # (Auto) 0.8 0.1-1.0 K/uL Eosinophils # (Auto) 0.17 0.00-0.70 K/uL Basophils # (Auto) 0.04 0.00-0.20 K/uL Absolute Immature Granulocyte (auto 0.01 0-1 K/uL Nucleated Red Blood Cells 0.0 0.0-0.19 % Sodium Level 140 136-145 mmol/L Potassium Level 4.5 3.5-5.1 mmol/L Chloride Level 105 101-111 mmol/L Carbon Dioxide Level 28 21-32 mmol/L Blood Urea Nitrogen 16 7-18 mg/dL Creatinine 1.2 H 0.5-1.0 mg/dL Glomerular Filtration Rate Calc 44 >90 mL/min Random Glucose 108 H 70-105 mg/dL Total Calcium 9.4 8.5-10.1 mg/dL Total Creatine Kinase 235 #H 21-232 U/L Troponin I High Sensitivity 20 4-50 ng/L B-Type Natriuretic Peptide 69 0-100 pg/mL Current Medications Medications (Trade) Dose Ordered Sig/Shelli Route PRN Reason Start Time Stop Time Status Last Admin Dose Admin Acetaminophen (TYLenol 325MG TAB) 650 mg Q6H PRN PO FEVER/MILD PAIN LEVEL 1-3 02/02/25 04:30 03/04/25 04:29 Acetaminophen (TYLenol 650MG SUPPOSITORY) 650 mg Q6H PRN RC FEVER / MILD PAIN 1-3 IF NPO 02/02/25 04:30 03/04/25 04:29 Dextrose (D50w) 50 ml AD PRN IV HYPOGLYCEMIA PROTOCOL 02/02/25 04:30 03/04/25 04:29 UNV Docusate Sodium (COLace 100MG CAP) 100 mg BID PRN PO CONSTIPATION 02/02/25 04:30 03/04/25 04:29 Famotidine (Pepcid 20mg Tab) 20 mg DAILY PO 02/02/25 09:00 03/04/25 08:59 Glucagon (Glucagon 1mg Kit) 1 mg AD PRN IM HYPOGLYCEMIA PROTOCOL 02/02/25 04:30 03/04/25 04:29 UNV Insulin Human Regular (humuLIN R 100 UNIT/ML 3ML) INSULIN SLIDING SCAL... ACHS SQ 02/02/25 07:30 03/04/25 07:29 Lactulose (Constulose 20gm/ 30ml Udcup) 20 gm Q6H PRN PO CONSTIPATION 02/02/25 04:30 03/04/25 04:29 Magnesium Sulfate 50 ml @ 0 mls/hr PROTOCOL PRN IV MAGNESIUM PROTOCOL 02/02/25 04:30 03/04/25 04:29 UNV Ondansetron HCl (zoFRAN 4MG INJ) 4 mg Q6H PRN IVP NAUSEA/VOMITING 02/02/25 04:30 03/04/25 04:29 Potassium Chloride 100 ml @ 100 mls/hr AD PRN IV POTASSIUM PROTOCOL 02/02/25 04:30 03/04/25 04:29 UNV Potassium Chloride (K-Dur/Klor-Con 20meq) 10 meq AD PRN PO POTASSIUM PROTOCOL 02/02/25 04:30 03/04/25 04:29 UNV Potassium Chloride (KCl 10% Elixir 20meq/15ml) 10 meq AD PRN PO POTASSIUM PROTOCOL 02/02/25 04:30 03/04/25 04:29 UNV Temazepam (restORIL 15 MG CAP) 15 mg HS PRN PO INSOMNIA/SLEEP 02/02/25 04:30 03/04/25 04:29 DIAGNOSTICS / RADIOLOGY: [ ] ASSESSMENT: Symptomatic bradycardia, POA Hypertension, POA Acute on chronic kidney disease, GFR Diabetes mellitus with hyperglycemia Elevated CK level, POA Acute complicated cystitis, POA Acute headache, POA LVEF is 40-45%. RVSP is estimated 30-40 mmHg. Grade 1 diastolic dysfunction, per echo 12/02/24 Chronic problem list: Paroxysmal atrial fibrillation Hyperlipidemia Hypertension Osteoarthritis Obesity, BMI 36.9 Obstructive sleep apnea, suspected PLAN: -Admit to medical floor with continuous telemetry monitoring. -Cardiology was consulted by ED. -Followed cardiology's recommendations: Hold metoprolol, start amlodipine 5 mg p.o. -Blood pressure adjustments per Cardiology. -p.r.n. medications for: Pain management, nausea, vomiting, constipation, fever. -Oxygen supplement as needed to maintain oxygen levels equal to or greater than 92% -Atorvastatin 40 mg PO daily. -Resume home medication atorvastatin 20 mg p.o. daily. -Resume home medication Eliquis5 mg p.o. b.i.d.. -Reconcile remaining medications once available. -Blood pressure checks every 4 hours and as needed. -Glucometer checks before meals and at bedtime with insulin regular sliding scale. -AM labs. -Monitor renal and liver function. -Monitor electrolytes and treat accordingly. -DVT and GI prophylaxis: Eliquis and Pepcid ADVANCED CARE PLANNING 1. Which of the following were discussed? Hospice Care - No Therapeutic options - Yes Advance Directives - Yes Other discussions - 2. Discussed with who? The patient 3. Voluntary nature of this service was explained to the patient? Yes 4. Amount of time spent - ___ over 35 minutes ____ 5. Reviewed by Physician? (if this service was performed by SHERMAN) Yes ATTESTATION BY PHYSICIAN I have seen and examined the patient. I reviewed the documentation, medical decision making, and treatment plan as noted by the mid-level provider above. I agree with the findings and plan of care. MARTHA HANSON [facility] Feb 02, 2025 04:25
[2025-02-02] MEDS ORDERED: acetaMINOPHEN 650 MG SUPPOSITORY RC PRN (04:30)
[2025-02-02] MEDS ORDERED: GLUCAGON 1MG KIT 1 MG ML IM PRN (04:30)
[2025-02-02] MEDS ORDERED: DEXTROSE 50%-WATER 50 ML DISP.SYRIN IV PRN (04:30)
[2025-02-02] MEDS ORDERED: PoTASSium chl 10% ELIXIR 20MEQ 20 MEQ/15 ML UDCUP PO PRN (04:30)
[2025-02-02] MEDS ORDERED: MAGNESIUM 2GM PREMIX 50ML 50 ML IV PRN (04:30)
[2025-02-02] MEDS ORDERED: doCUSate SODIUM 100 MG CAP PO PRN (04:30)
[2025-02-02] MEDS ORDERED: PoTASSium chloRIDE 20MEQ ER 20 MEQ ERTAB PO PRN (04:30)
[2025-02-02] MEDS ORDERED: TEMAZepam 15 MG CAPSULE PO PRN (04:30)
[2025-02-02] MEDS ORDERED: PoTASSium chloRIDE 10MEQ/100ML 100 ML IV PRN (04:30)
[2025-02-02] MEDS ORDERED: ondanSETRON 4MG INJ IVP PRN (04:30)
--- NOTE | 2025-02-02 06:15 | EKG ---
[facility] Test Date: 2025-02-02 Test Time: 01:11:02 Pat Name: JORJE PALMA Department: [facility]HIP Room: ED 20 Gender: F Drug Worker: [id number] : 1940 Requested By: SONY RAMIRES Order Number: [id number] Reading MD: Rick Acevedo Measurements Intervals [place] Rate: 56 P: 28 NH: 148 QRS: 10 QRSD: 101 T: 46 QT: 467 QTc: 453 Interpretive Statements Sinus rhythm Compared to ECG 01/25/2019 19:23:50 No significant changes Electronically Signed On 02-02-2025 11:35:06 CDT by Rcik Acevedo Please click the below link to view image of tracing.
[2025-02-02 06:48] LABS: APPEARANCE,URINE CLEAR (CLEAR); BILIRUBIN,URINE NEGATIVE (NEGATIVE); COLOR,URINE COLORLESS (YELLOW); GLUCOSE, URINE (UA) NEGATIVE (NEGATIVE); KETONES,URINE NEGATIVE (NEGATIVE); LEUKOCYTE ESTERASE ,URINE 250 Leu/uL (NEGATIVE); NITRATE,URINE NEGATIVE (NEGATIVE); PH,URINE 6.5 (5.0-8.0); PROTEIN,URINE NEGATIVE (NEGATIVE); UROBILINOGEN,URINE 0.2 mg/dL (0.2-1.0)
[2025-02-02 06:51] LABS: ADD UA MICROSCOPIC YES
[2025-02-02 07:03] LABS: BACTERIA,URINE Rare /HPF (None Seen); SQUAMOUS EPITHELIAL CELL,UR Rare /HPF (0-2)
[2025-02-02] MEDS: INSULIN humuLIN R 100 UNIT/ML 3ML SQ SCH (07:30)
--- NOTE | 2025-02-02 08:24 | NUR ---
DCP: HOME SW met with pt and daughter Rohna Meneses [phone]. Family reports [place] [facility] [place]. Pt hard of hearing, daughter states pt's daughter Paige lives with pt. Pt with food stamp assistance. Pt remains able to complete ADLS on her own. Family assist with home management meal prep and transportation as needed. Pt uses a walker with seat, has shower chair and bsc at home. No HH or HD services. Family feels pt would benefit from HH at [facility]. Daughter to contact PCP Jose Prince and request referral. Addendum: 02/02/25 at 0850 by YUDY VICKERS Amended: Links added.
[2025-02-02] MEDS: FAMOTIDINE 20MG TAB PO SCH (09:19)
[2025-02-02] MEDS: cefTRIAXone 2GM VIAL IVPB SCH (09:19)
[2025-02-02] MEDS: amLODIPine 5 MG TAB PO SCH (09:19)
[2025-02-02] MEDS: APIXaban 5 MG TABLET PO SCH (09:19)
--- NOTE | 2025-02-02 11:09 | HMCIMG ---
CHEST 1VW REASON: CHEST PAIN COMPARISON: None. FINDINGS: Single view of the chest was obtained. Lungs are clear. Heart size is normal. There is no pulmonary vascular congestion. Mediastinum and bony thorax appear unremarkable. IMPRESSION: 1. Normal single view chest x-ray.
--- NOTE | 2025-02-02 13:00 | NUR ---
DR ELIAS AT BEDSIDE.
[2025-02-02] MEDS ORDERED: FURO20TA4 PO (13:09)
[2025-02-02] MEDS ORDERED: APIX5TAB PO (13:09)
[2025-02-02] MEDS ORDERED: AMIO100T4 PO (13:09)
[2025-02-02] MEDS ORDERED: OMEP20CA12 PO (13:09)
[2025-02-02] MEDS ORDERED: TELM40TA8 PO (13:09)
[2025-02-02] MEDS ORDERED: METO50TA18 PO (13:09)
[2025-02-02] MEDS ORDERED: ATOR10 PO (13:09)
[2025-02-02] MEDS ORDERED: METO25TA6 PO (13:09)
--- NOTE | 2025-02-02 13:54 | NUR ---
REPORT GIVEN TO AVILA AYERS.
[2025-02-02 14:40] VITALS: BP 118/65; PULSE 59; RESP 20; TEMP 98.7
--- NOTE | 2025-02-02 15:36 | PN ---
[facility] PROGRESS NOTE Date of Service: Feb 02, 2025 Time of Service: 15:16 SUBJECTIVE: Ms. López is a 84-year-old female with a history of hypertension and AFib who presented to [facility] [place] ED for evaluation of symptomatic bradycardia and hypertension. Daughter at bedside reported that her medications were readjusted by her stack clerk. She was taking amiodarone 200 mg a day and was decreased to 100 mg a day due to the amiodarone causing the patient to have a shaking side effects. Her losartan was stopped and she was placed on telmisartan. The patient was restarted on metoprolol after Dr. Barahona had removed it. The daughter at bedside reported that she is to take mg in the morning and if her blood pressure and heart rate are still high she could take metoprolol in the evening also. The daughter reported that her sister was giving the [id number] mg twice a day, and she gave it last night on 02/01/2025. The daughter reported she was given strict instructions to return to the ED if her heart rate falls below 60 beats per minute. The patient's heart rate went down to 50s, and fell sick, therefore her daughter brought her for evaluation. On arrival to ED the patient's heart rate was 56 bpm, but dropped as low as 40s (44 bpm). EKG: Sinus bradycardia, heart rate 56 bpm. Vital signs on arrival: BP 186/69, heart rate 60, respirations 20, 98% on room air. ED administered hydralazine 20 mg IV. ED physician spoke to Dr. Sol, stack clerk on-call for Dr. Barahona. He recommended holding the metoprolol as these patient's heart rate is now 55 bpm. Increase telmisartan by 20 mg or start amlodipine 5 mg. ED provider request patient be admitted with the diagnosis of bradycardia and hypertension. 02/02/25 patient was seen and examined today morning in ED 20. Spoke with her daughter on the phone. Patient is asymptomatic. She denies chest pain, chest pressure, fever or chills. On the monitor the pulse rate we will arranging from 45-55. Blood pressure was under control 125/58 mmHg with amlodipine 5 mg. Labs showed CBC unremarkable, CMP unremarkable. BUN 16 and creatinine 1.2. Troponin 20, BNP 69. Total creatinine kinase 235. Urine analysis is positive for UTI and the urine culture results pending. Continue IV ceftriaxone 2 g Q24 H. Chest x-ray unremarkable. Cardiology is consulted and we will follow their recommendations. REVIEW OF SYSTEMS CONSTITUTIONAL: Denies fevers, chills, or night sweats. No unintentional weight loss reported. NEUROLOGICAL: Denies headache, amaurosis fugax, motor weakness, sensory deficit, vertigo/spinning sensation, gait abnormalities, or tremors. ENT: No hearing loss, otalgia, otorrhea, rhinitis, rhinorrhea, hoarseness, or sore throat. CARDIOVASCULAR: Denies any exertional angina, dyspnea on exertion, orthopnea, paroxysmal nocturnal dyspnea, palpitations, life-threatening arrhythmias, claudication. Complains of chest discomfort PULMONARY: Denies any shortness of breath, cough, phlegm/sputum, hemoptysis, pleuritic chest pain. SLEEP: Denies morning headaches, daytime somnolence or napping. Denies difficulty falling asleep, staying asleep, waking from sleep. Denies knowledge of snoring. GASTROINTESTINAL: Denies any type of dysphagia to either liquids or solids. Denies nausea, vomiting, pyrosis, early satiety, abdominal pain, diarrhea, constipation, or changes in stool consistency or caliber. Denies coffee-ground emesis, hematemesis, hematochezia, or melanotic stools. GENITOURINARY: Denies frequency, urgency, nocturia, hematuria or incontinence (Storage/Irritative symptoms.) Low urinary stream, straining to void, urinary intermittency or hesitancy, splitting of the voiding stream, terminal dribbling. ENDOCRINOLOGIC: Denies polyuria, polydipsia, polyphagia or heat/cold intolerances. PHYSICAL EXAM GENERAL APPEARANCE: The patient is awake, alert, and oriented, in no acute cardiopulmonary distress. NECK: Supple. No JVD. No thyromegaly. No submental, submandibular, pre- /postauricular, occipital or supraclavicular lymphadenopathy. CHEST: Normal chest expansion. No Telemetry. LUNGS: Absence of any rales, rhonchi or any wheezing. CARDIOVASCULAR: Regular. S1 and S2 normal. No appreciable rubs, murmurs or gallops. ABDOMEN: Obese. Soft, nontender, and nondistended. There is no rebound, voluntary guarding, or rigidity. : Deferred. No Jolly. EXTREMITIES: Non-edematous and not cyanotic. No clubbing. Good capillary refill. SKIN: No skin breakdown. Vital Signs (last 8hr) Date Time Temp Pulse Resp B/P (MAP) Pulse Ox O2 Delivery O2 Flow Rate FiO2 02/02/25 14:40 98.8 59 20 118/65 99 Room Air 02/02/25 13:41 97.2 51 17 126/66 98 Room Air* 0 21 02/02/25 11:30 97.2 54 22 126/54 99 Room Air* 0 21 02/02/25 07:30 97.2 46 18 153/65 99 Room Air* 0 21 LABS: Laboratory: Test 02/02/25 11:44 02/02/25 06:13 02/02/25 02:11 02/02/25 01:22 Range/Units Whole Blood Glucose 114 H 70-110 MG/DL Urine Color COLORLESS YELLOW Urine Appearance CLEAR CLEAR Urine pH 6.5 5.0-8.0 Urine Specific [place] 1.004 1.001-1.031 Urine Protein NEGATIVE NEGATIVE mg/dL Urine Glucose (UA) NEGATIVE NEGATIVE mg/dL Urine Ketones NEGATIVE NEGATIVE mg/dL Urine Occult Blood +- (TRACE) H NEGATIVE Urine Nitrate NEGATIVE NEGATIVE Urine Bilirubin NEGATIVE NEGATIVE mg/dL Urine Urobilinogen 0.2 0.2-1.0 mg/dL Urine Leukocyte Esterase 250 H NEGATIVE Melissa/uL Urine RBC 2-5 H 0-1 /HPF Urine WBC 6-10 H 0-1 /HPF Urine Squamous Epithelial Cells Rare 0-2 /HPF Urine Bacteria Rare None Seen /HPF Magnesium Level 2.10 1.80-2.40 mg/dL White Blood Count 7.7 4.8-10.8 K/uL Red Blood Count 4.10 4.00-5.50 MIL/uL Hemoglobin 13.3 12.0-16.0 g/dL Hematocrit 40.4 36-48 % Mean Corpuscular Volume 98.5 79-99 fL Mean Corpuscular Hemoglobin 32.4 27.0-33.0 pg Mean Corpuscular Hemoglobin Concent 32.9 32.0-36.0 g/dL Red Cell Distribution Width 12.5 11.0-15.5 % Platelet Count 249 130-400 K/uL Mean Platelet Volume 11.3 H 7.5-10.5 fL Immature Granulocyte % (Auto) 0.1 0-1 % Neutrophils (%) (Auto) 53.4 40.0-77.0 % Lymphocytes (%) (Auto) 33.6 21.0-51.0 % Monocytes (%) (Auto) 10.2 3.0-13.0 % Eosinophils (%) (Auto) 2.2 0.0-8.0 % Basophils (%) (Auto) 0.5 0.0-5.0 % Neutrophils # (Auto) 4.1 1.8-7.7 K/uL Lymphocytes # (Auto) 2.6 1.0-4.8 K/uL Monocytes # (Auto) 0.8 0.1-1.0 K/uL Eosinophils # (Auto) 0.17 0.00-0.70 K/uL Basophils # (Auto) 0.04 0.00-0.20 K/uL Absolute Immature Granulocyte (auto 0.01 0-1 K/uL Nucleated Red Blood Cells 0.0 0.0-0.19 % Sodium Level 140 136-145 mmol/L Potassium Level 4.5 3.5-5.1 mmol/L Chloride Level 105 101-111 mmol/L Carbon Dioxide Level 28 21-32 mmol/L Blood Urea Nitrogen 16 7-18 mg/dL Creatinine 1.2 H 0.5-1.0 mg/dL Glomerular Filtration Rate Calc 44 >90 mL/min Random Glucose 108 H 70-105 mg/dL Total Calcium 9.4 8.5-10.1 mg/dL Total Creatine Kinase 235 #H 21-232 U/L Troponin I High Sensitivity 20 4-50 ng/L B-Type Natriuretic Peptide 69 0-100 pg/mL Current Medications Medications (Trade) Dose Ordered Sig/Shelli Route PRN Reason Start Time Stop Time Status Last Admin Dose Admin Acetaminophen (TYLenol 325MG TAB) 650 mg Q6H PRN PO FEVER/MILD PAIN LEVEL 1-3 02/02/25 04:30 03/04/25 04:29 Acetaminophen (TYLenol 650MG SUPPOSITORY) 650 mg Q6H PRN RC FEVER / MILD PAIN 1-3 IF NPO 02/02/25 04:30 03/04/25 04:29 Amlodipine Besylate (NorvASC 5MG TAB) 5 mg DAILY PO 02/02/25 09:00 03/04/25 08:59 02/02/25 09:19 5 MG Apixaban (EliquIS) 5 mg BID PO 02/02/25 09:00 03/04/25 08:59 02/02/25 09:19 5 MG Apixaban (EliquIS) 5 mg BID PO 02/02/25 21:00 03/04/25 20:59 UNV Atorvastatin Calcium (LIPItor 10MG) 10 mg DAILY PO 02/03/25 09:00 03/05/25 08:59 UNV Atorvastatin Calcium (LIPItor 20MG) 20 mg HS PO 02/02/25 21:00 03/04/25 20:59 Ceftriaxone Sodium (Rocephin 2gm Inj) 2 gm Q24H IVPB 02/02/25 08:10 02/12/25 08:09 02/02/25 09:19 2 GM Dextrose (D50w) 50 ml AD PRN IV HYPOGLYCEMIA PROTOCOL 02/02/25 04:30 03/04/25 04:29 Docusate Sodium (COLace 100MG CAP) 100 mg BID PRN PO CONSTIPATION 02/02/25 04:30 03/04/25 04:29 Famotidine (Pepcid 20mg Tab) 20 mg DAILY PO 02/02/25 09:00 03/04/25 08:59 02/02/25 09:19 20 MG Glucagon (Glucagon 1mg Kit) 1 mg AD PRN IM HYPOGLYCEMIA PROTOCOL 02/02/25 04:30 03/04/25 04:29 Insulin Human Regular (humuLIN R 100 UNIT/ML 3ML) INSULIN SLIDING SCAL... ACHS SQ 02/02/25 07:30 03/04/25 07:29 Lactulose (Constulose 20gm/ 30ml Udcup) 20 gm Q6H PRN PO CONSTIPATION 02/02/25 04:30 03/04/25 04:29 Magnesium Sulfate 50 ml @ 0 mls/hr PROTOCOL PRN IV MAGNESIUM PROTOCOL 02/02/25 04:30 03/04/25 04:29 Miscellaneous Medication (Amiodarone HCl ) 1 tab DAILY PO 02/03/25 09:00 03/05/25 08:59 UNV Miscellaneous Medication (Telmisartan ) 1 tab DAILY PO 02/03/25 09:00 03/05/25 08:59 UNV Ondansetron HCl (zoFRAN 4MG INJ) 4 mg Q6H PRN IVP NAUSEA/VOMITING 02/02/25 04:30 03/04/25 04:29 Potassium Chloride 100 ml @ 100 mls/hr AD PRN IV POTASSIUM PROTOCOL 02/02/25 04:30 03/04/25 04:29 Potassium Chloride (K-Dur 10meq Sr Tab) 10 meq AD PRN PO POTASSIUM PROTOCOL 02/02/25 07:30 03/04/25 04:29 Potassium Chloride (K-Dur/Klor-Con 20meq) 10 meq AD PRN PO POTASSIUM PROTOCOL 02/02/25 04:30 02/02/25 07:20 DC Potassium Chloride (KCl 10% Elixir 20meq/15ml) 10 meq AD PRN PO POTASSIUM PROTOCOL 02/02/25 04:30 03/04/25 04:29 Temazepam (restORIL 15 MG CAP) 15 mg HS PRN PO INSOMNIA/SLEEP 02/02/25 04:30 03/04/25 04:29 DIAGNOSTICS / RADIOLOGY: [place] [address] IMAGING REPORT Signed PATIENT: JORJE LÓPEZ MR#: [id number] : 1940 SEX: F AGE: 84 LOCATION: [facility] ORDER 2 STATUS: ADM IN REPORT#: [id number] SERVICE 2 REASON: CHEST PAIN ORDERING PHYSICIAN: SONY RAMIRES MD PROCEDURE: CXR1VW - CHEST 1VW CHEST 1VW REASON: CHEST PAIN COMPARISON: None. FINDINGS: Single view of the chest was obtained. Lungs are clear. Heart size is normal. There is no pulmonary vascular congestion. Mediastinum and bony thorax appear unremarkable. IMPRESSION: 1. Normal single view chest x-ray. DICTATED BY: NADINE RUIZ MD DATE: 02/02/251104 ELECTRONICALLY SIGNED BY: NADINE RUIZ MD DATE: 02/02/251108 ASSESSMENT: Symptomatic bradycardia, POA Hypertension, POA Acute on chronic kidney disease, GFR Diabetes mellitus with hyperglycemia Elevated CK level, POA Acute complicated cystitis, POA Acute headache, POA LVEF is 40-45%. RVSP is estimated 30-40 mmHg. Grade 1 diastolic dysfunction, per echo 12/02/24 Chronic problem list: Paroxysmal atrial fibrillation Hyperlipidemia Hypertension Osteoarthritis Obesity, BMI 36.9 Obstructive sleep apnea, suspected PLAN: Patient is waiting on bed on the medical surgical floor. Symptomatic bradycardia, POA Patient's heart rate ranging between 45-50. Cardiology consult is requested and we will follow their recommendations. Cardiology recommended to hold metoprolol and started on amlodipine 5 mg for hypertension. Hypertension, POA Metoprolol was held and started on amlodipine 5 mg. Continue to monitor her blood pressure and we will adjust her medication accordingly. Acute complicated cystitis, POA Urine analysis is consistent with UTI, positive for leukocyte esterase, RBC and WBC. Pending urine culture results. Continue IV ceftriaxone 2 g Q 24 H. Acute on chronic kidney disease, GFR Kidney functions showed BUN 16 and creatinine 1.2 Continue to monitor. Diabetes mellitus with hyperglycemia Glucometer checks before meals and at bedtime with insulin regular sliding scale. Hypoglycemia protocol. Blood glucose in morning 113. Elevated CK level, POA Total CK level to 235, likely elevated due to atorvastatin. We will continue to monitor CK level. LVEF is 40-45%. RVSP is estimated 30-40 mmHg. Grade 1 diastolic dysfunction, per echo 12/02/24 Patient takes furosemide at home and we will resume. BNP 69. Paroxysmal atrial fibrillation Resumed Eliquis 5 mg p.o. b.i.d. and amiodarone 100 mg EKG showed sinus bradycardia. Hyperlipidemia Atorvastatin 10 mg PO daily. p.r.n. medications for: Pain management, nausea, vomiting, constipation, fever. DVT and GI prophylaxis: Arabella ATTESTATION BY PHYSICIAN I have seen and examined the patient. I reviewed the documentation, medical decision making, and treatment plan as noted by the resident provider above. I agree with the findings and plan of care. Presley Barahona MD, KRUPALI P MD Feb 02, 2025 15:36
[2025-02-02 16:00] VITALS: BP 127/59; PULSE 50; RESP 20; TEMP 97.9
[2025-02-02 16:50] VITALS: O2SAT 99
[2025-02-02] MEDS ORDERED: MELO-108 PO (18:51)
[2025-02-02 20:00] VITALS: BP 140/73; PULSE 61; RESP 18; TEMP 98.3
[2025-02-02 20:15] VITALS: O2SAT 98
[2025-02-02] MEDS ORDERED: APIXaban 5 MG TABLET PO SCH (21:00)
[2025-02-02] MEDS: atorVAStatin 20 MG TABLET PO SCH (21:09)
[2025-02-03] VITALS (8 sets, daily range): BP systolic 117–147; BP diastolic 45–72; PULSE 56–68; RESP 18–20; TEMP 97.7–98.1; O2SAT 98–99
[2025-02-03 03:48] LABS: HEMATOCRIT 37.1 % (36-48); MEAN CORPUSCULAR HEMOGLOBIN 32.4 pg (27.0-33.0); MEAN CORPUSCULAR HGB CONC 32.6 g/dL (32.0-36.0); MEAN CORPUSCULAR VOLUME 99.2 fL (79-99); RED BLOOD CELL COUNT(AUTO) 3.74 MIL/uL (4.00-5.50); RED CELL DISTRIBUTION WIDTH 12.5 % (11.0-15.5); WHITE BLOOD COUNT (AUTO) 7.3 K/uL (4.8-10.8)
[2025-02-03 04:07] LABS: CREATININE 1.3 mg/dL (0.5-1.0); PHOSPHORUS 3.8 mg/dL (2.5-4.9); POTASSIUM 3.8 mmol/L (3.5-5.1)
[2025-02-03] MEDS: INSULIN humuLIN R 100 UNIT/ML 3ML SQ SCH (06:39)
[2025-02-03] MEDS: acetaMINOPHEN 325 MG TAB PO PRN (07:26)
[2025-02-03] MEDS: AMIOdarone 200 MG TABLET PO SCH (08:58)
[2025-02-03] MEDS ORDERED: atorVAStatin 10 MG TABLET PO SCH (09:00)
[2025-02-03] MEDS ORDERED: LoSARTan 50 MG TABLET PO SCH (09:00)
--- NOTE | 2025-02-03 11:28 | CONS ---
[facility] Cardiology Consultation Note Cardiology consult dictated for Jody Munoz MD Date of service 02/03/2025 Chief complaint: Symptomatic bradycardia Primary drill runner: Dr. Pam delarosa History of present illness: Made aware of consult of today at 9:00 a.m. This is an 84-year-old female presented for evaluation of low heart rate and high blood pressure. She has a history of atrial fibrillation on chronic anticoagulation with Eliquis and presented to [facility] on the 31 of January with complaints of tremors and high blood pressure. He saw Dr. Sol who was office one at the time. Medication changes were performed she was on amiodarone 200 mg daily and was decreased to 100 mg daily, losartan was discontinued and changed to telmisartan 40 mg daily. She told Dr. Sol she was on metoprolol tartrate 50 mg p.o. b.i.d. and he decreased it to 25 mg p.o. b.i.d.. Today she tells me she was not on metoprolol when she visited with Dr. Sol. On presentation 12 lead EKG demonstrated sinus bradycardia heart rate 47 beats per minute. Daughter reports on bedside monitor patient was sustaining heart rate in the low 30s. Currently on telemetry sinus bradycardia heart rate 60 beats per minute. She denies chest pain no dizziness syncope or palpitations. Past medical history: Positive for atrial fibrillation on chronic anticoagulation with Eliquis, hypertension, dyslipidemia. Negative for CVA TIA no PE no DVT no liver kidney or thyroid disease. Past surgical history: Positive for bilateral cataract surgery Family history: Noncontributory Allergies: Patient is allergic to aspirin, iodine, tetanus immunoglobulin and intolerant to amiodarone. Review of systems: 14 point review of systems performed pertinent positives and negatives discussed in HPI Review of blood work: Basic metabolic panel with a sodium of 140, potassium 4.5, BUN of 16, creatinine of 1.2 and a GFR of 44 BNP was 69. Troponin high sensitivity 20 and a magnesium of 2.10. CBC hemoglobin of 12.1, hematocrit 37.1, white blood cells of seven and platelets of 224. Current medications: Atorvastatin 20 mg at HS, amlodipine 5 mg daily, Eliquis 5 mg p.o. b.i.d.. Physical exam: Blood pressure 133/67 heart rate of 58-60 beats per minute and regular normal S1-S2 no rubs gallops murmurs noted. Neck is supple no jugular vein distention no carotid bruits. Bilateral breath sounds are clear to auscultation. Lower extremities no edema no cyanosis. Patient is alert awake and oriented. All others within normal limits. Assessment: Symptomatic bradycardia Paroxysmal Atrial fibrillation on chronic anticoagulation with Eliquis Intolerant to amiodarone due to neurological symptoms Hypertension Plan: At this point we have an 84-year-old female presented for evaluation of symptomatic bradycardia. She has a history of atrial fibrillation on chronic anticoagulation that was diagnosed this year at [facility]. She was on amiodarone therapy was asked by Dr. Pam Delarosa on last visit to discontinue amiodarone due to tremors and add metoprolol to her regimen. According to her daughter her, mom was scared of changing medications and did not follow instructions. [facility] to be evaluated by Dr. Sol with complaints of tremors and increase in blood pressure. Medication changes were performed and she presented two days later to the emergency department with complaints of low heart rate, dizziness and high blood pressure. Currently patient on telemetry sinus bradycardia heart rate 58-60 beats per minute and blood pressure 133/67. Patient is resting comfortably without complaint. Discussed with patient and daughter rate control versus rhythm control. Plan is to continue holding metoprolol and discontinue amiodarone. Tomorrow if heart rate is stable we can add low-dose metoprolol tartrate b.i.d. and discharged home. ATTESTATION BY PHYSICIAN I have seen and examined the patient. I reviewed the documentation, medical decision making, and treatment plan as noted by the mid-level provider above. I agree with the findings and plan of care. JODY MUNOZ MD, [facility] Feb 03, 2025 11:28 JODY MUNOZ MD Feb 03, 2025 13:45
[2025-02-03] MEDS: PoTASSium chloRIDE 10MEQ SR 10 MEQ/TAB TAB.SR.24H PO PRN (12:01)
--- NOTE | 2025-02-03 13:41 | PN ---
[facility] PROGRESS NOTE Date of Service: Feb 03, 2025 Time of Service: 13:29 SUBJECTIVE: Ms. López is a 84-year-old female with a history of hypertension and AFib who presented to [facility] ED for evaluation of symptomatic bradycardia and hypertension. Daughter at bedside reported that her medications were readjusted by her rn hospital. She was taking amiodarone 200 mg a day and was decreased to 100 mg a day due to the amiodarone causing the patient to have a shaking side effects. Her losartan was stopped and she was placed on telmisartan. The patient was restarted on metoprolol after Dr. Barahona had removed it. The daughter at bedside reported that she is to take [id number] mg in the morning and if her blood pressure and heart rate are still high she could take metoprolol in the evening also. The daughter reported that her sister was giving the [id number] mg twice a day, and she gave it last night on 02/01/2025. The daughter reported she was given strict instructions to return to the ED if her heart rate falls below 60 beats per minute. The patient's heart rate went down to 50s, and fell sick, therefore her daughter brought her for evaluation. On arrival to ED the patient's heart rate was 56 bpm, but dropped as low as 40s (44 bpm). EKG: Sinus bradycardia, heart rate 56 bpm. Vital signs on arrival: BP 186/69, heart rate 60, respirations 20, 98% on room air. ED administered hydralazine 20 mg IV. ED physician spoke to Dr. Sol, rn hospital on-call for Dr. Barahona. He recommended holding the metoprolol as these patient's heart rate is now 55 bpm. Increase telmisartan by 20 mg or start amlodipine 5 mg. ED provider request patient be admitted with the diagnosis of bradycardia and hypertension. 02/02/25 patient was seen and examined today morning in ED 20. Spoke with her daughter on the phone. Patient is asymptomatic. She denies chest pain, chest pressure, fever or chills. On the monitor the pulse rate we will arranging from 45-55. Blood pressure was under control 125/58 mmHg with amlodipine 5 mg. Labs showed CBC unremarkable, CMP unremarkable. BUN 16 and creatinine 1.2. Troponin 20, BNP 69. Total creatinine kinase 235. Urine analysis is positive for UTI and the urine culture results pending. Continue IV ceftriaxone 2 g Q24 H. Chest x-ray unremarkable. Cardiology is consulted and we will follow their recommendations. 02/03/25 the patient was seen and examined. Her daughter is at the bedside. Patient denies any complaints. She is asymptomatic. Her treat ranges between 55-60 today. Blood pressure is under control 133/67. Aeronautical Test Engineer came by for evaluation. He recommended to discontinue amiodarone and hold metoprolol for today. If the heart rate stable, he will start her on low-dose of metoprolol tartrate tomorrow and likely discharge tomorrow if her heart rate is stable. Patient is complaining of restless leg, for which she takes meloxicam at home. Her kidney functions are deranged likely from meloxicam. BUN17 and creatinine 1.3. We will discontinue meloxicam and we will start her on ropinirole 0.25 mg daily at the night. Urine culture showed mixed skin justin contamination and we will discontinue IV Rocephin. REVIEW OF SYSTEMS CONSTITUTIONAL: Denies fevers, chills, or night sweats. No unintentional weight loss reported. NEUROLOGICAL: Denies headache, amaurosis fugax, motor weakness, sensory deficit, vertigo/spinning sensation, gait abnormalities, or tremors. ENT: No hearing loss, otalgia, otorrhea, rhinitis, rhinorrhea, hoarseness, or sore throat. CARDIOVASCULAR: Denies any exertional angina, dyspnea on exertion, orthopnea, paroxysmal nocturnal dyspnea, palpitations, life-threatening arrhythmias, claudication. PULMONARY: Denies any shortness of breath, cough, phlegm/sputum, hemoptysis, pleuritic chest pain. SLEEP: Denies morning headaches, daytime somnolence or napping. Denies difficulty falling asleep, staying asleep, waking from sleep. Denies knowledge of snoring. GASTROINTESTINAL: Denies any type of dysphagia to either liquids or solids. Denies nausea, vomiting, pyrosis, early satiety, abdominal pain, diarrhea, constipation, or changes in stool consistency or caliber. Denies coffee-ground emesis, hematemesis, hematochezia, or melanotic stools. GENITOURINARY: Denies frequency, urgency, nocturia, hematuria or incontinence (Storage/Irritative symptoms.) Low urinary stream, straining to void, urinary intermittency or hesitancy, splitting of the voiding stream, terminal dribbling. ENDOCRINOLOGIC: Denies polyuria, polydipsia, polyphagia or heat/cold intolerances. PHYSICAL EXAM GENERAL APPEARANCE: The patient is awake, alert, and oriented, in no acute cardiopulmonary distress. NECK: Supple. No JVD. No thyromegaly. No submental, submandibular, pre-/pos tauricular, occipital or supraclavicular lymphadenopathy. CHEST: Normal chest expansion. No Telemetry. LUNGS: Absence of any rales, rhonchi or any wheezing. CARDIOVASCULAR: Regular. S1 and S2 normal. No appreciable rubs, murmurs or gallops. ABDOMEN: Obese. Soft, nontender, and nondistended. There is no rebound, voluntary guarding, or rigidity. : Deferred. No Jolly. EXTREMITIES: Non-edematous and not cyanotic. No clubbing. Good capillary refill. SKIN: No skin breakdown. Vital Signs (last 8hr) Date Time Temp Pulse Resp B/P (MAP) Pulse Ox O2 Delivery O2 Flow Rate FiO2 02/03/25 11:00 98.1 68 18 122/58 100 Room Air 02/03/25 08:00 98 Room Air* 0 21 02/03/25 07:00 98.1 58 19 133/67 100 Room Air LABS: Laboratory: Test 02/03/25 03:31 02/02/25 11:44 02/02/25 06:13 02/02/25 01:22 Range/Units White Blood Count 7.3 4.8-10.8 K/uL Red Blood Count 3.74 L 4.00-5.50 MIL/uL Hemoglobin 12.1 12.0-16.0 g/dL Hematocrit 37.1 36-48 % Mean Corpuscular Volume 99.2 H 79-99 fL Mean Corpuscular Hemoglobin 32.4 27.0-33.0 pg Mean Corpuscular Hemoglobin Concent 32.6 32.0-36.0 g/dL Red Cell Distribution Width 12.5 11.0-15.5 % Platelet Count 224 130-400 K/uL Mean Platelet Volume 11.2 H 7.5-10.5 fL Nucleated Red Blood Cells 0.0 0.0-0.19 % Sodium Level 142 136-145 mmol/L Potassium Level 3.8 3.5-5.1 mmol/L Chloride Level 107 101-111 mmol/L Carbon Dioxide Level 28 21-32 mmol/L Blood Urea Nitrogen 17 7-18 mg/dL Creatinine 1.3 H 0.5-1.0 mg/dL Glomerular Filtration Rate Calc 40 >90 mL/min Random Glucose 98 70-105 mg/dL Total Calcium 9.0 8.5-10.1 mg/dL Phosphorus Level 3.8 2.5-4.9 mg/dL Magnesium Level 2.00 1.80-2.40 mg/dL Total Creatine Kinase 126 # 21-232 U/L Whole Blood Glucose 114 H 70-110 MG/DL Urine Color COLORLESS YELLOW Urine Appearance CLEAR CLEAR Urine pH 6.5 5.0-8.0 Urine Specific [place] 1.004 1.001-1.031 Urine Protein NEGATIVE NEGATIVE mg/dL Urine Glucose (UA) NEGATIVE NEGATIVE mg/dL Urine Ketones NEGATIVE NEGATIVE mg/dL Urine Occult Blood +- (TRACE) H NEGATIVE Urine Nitrate NEGATIVE NEGATIVE Urine Bilirubin NEGATIVE NEGATIVE mg/dL Urine Urobilinogen 0.2 0.2-1.0 mg/dL Urine Leukocyte Esterase 250 H NEGATIVE Melissa/uL Urine RBC 2-5 H 0-1 /HPF Urine WBC 6-10 H 0-1 /HPF Urine Squamous Epithelial Cells Rare 0-2 /HPF Urine Bacteria Rare None Seen /HPF Immature Granulocyte % (Auto) 0.1 0-1 % Neutrophils (%) (Auto) 53.4 40.0-77.0 % Lymphocytes (%) (Auto) 33.6 21.0-51.0 % Monocytes (%) (Auto) 10.2 3.0-13.0 % Eosinophils (%) (Auto) 2.2 0.0-8.0 % Basophils (%) (Auto) 0.5 0.0-5.0 % Neutrophils # (Auto) 4.1 1.8-7.7 K/uL Lymphocytes # (Auto) 2.6 1.0-4.8 K/uL Monocytes # (Auto) 0.8 0.1-1.0 K/uL Eosinophils # (Auto) 0.17 0.00-0.70 K/uL Basophils # (Auto) 0.04 0.00-0.20 K/uL Absolute Immature Granulocyte (auto 0.01 0-1 K/uL Troponin I High Sensitivity 20 4-50 ng/L B-Type Natriuretic Peptide 69 0-100 pg/mL Current Medications Medications (Trade) Dose Ordered Sig/Shelli Route PRN Reason Start Time Stop Time Status Last Admin Dose Admin Acetaminophen (TYLenol 325MG TAB) 650 mg Q6H PRN PO FEVER/MILD PAIN LEVEL 1-3 02/02/25 04:30 03/04/25 04:29 02/03/25 07:26 650 MG Acetaminophen (TYLenol 650MG SUPPOSITORY) 650 mg Q6H PRN RC FEVER / MILD PAIN 1-3 IF NPO 02/02/25 04:30 03/04/25 04:29 Amiodarone HCl (pacERONE 200MG) 100 mg DAILY PO 02/03/25 09:00 02/03/25 10:52 DC 02/03/25 08:58 100 MG Amlodipine Besylate (NorvASC 5MG TAB) 5 mg DAILY PO 02/02/25 09:00 03/04/25 08:59 02/03/25 08:58 5 MG Apixaban (EliquIS) 5 mg BID PO 02/02/25 09:00 03/04/25 08:59 02/03/25 08:59 5 MG Apixaban (EliquIS) 5 mg BID PO 02/02/25 21:00 02/02/25 15:20 DC Atorvastatin Calcium (LIPItor 10MG) 10 mg DAILY PO 02/03/25 09:00 02/02/25 15:20 DC Atorvastatin Calcium (LIPItor 20MG) 20 mg HS PO 02/02/25 21:00 03/04/25 20:59 02/02/25 21:09 20 MG Ceftriaxone Sodium (Rocephin 2gm Inj) 2 gm Q24H IVPB 02/02/25 08:10 02/12/25 08:09 02/03/25 08:59 2 GM Dextrose (D50w) 50 ml AD PRN IV HYPOGLYCEMIA PROTOCOL 02/02/25 04:30 03/04/25 04:29 Docusate Sodium (COLace 100MG CAP) 100 mg BID PRN PO CONSTIPATION 02/02/25 04:30 03/04/25 04:29 Famotidine (Pepcid 20mg Tab) 20 mg DAILY PO 02/02/25 09:00 03/04/25 08:59 6/5/25 08:58 20 MG Glucagon (Glucagon 1mg Kit) 1 mg AD PRN IM HYPOGLYCEMIA PROTOCOL 02/02/25 04:30 03/04/25 04:29 Insulin Human Regular (humuLIN R 100 UNIT/ML 3ML) INSULIN SLIDING SCAL... ACBKFST SQ 02/03/25 07:30 03/05/25 07:29 Insulin Human Regular (humuLIN R 100 UNIT/ML 3ML) INSULIN SLIDING SCAL... ACHS SQ 02/02/25 07:30 02/02/25 17:50 DC Lactulose (Constulose 20gm/ 30ml Udcup) 20 gm Q6H PRN PO CONSTIPATION 02/02/25 04:30 03/04/25 04:29 Losartan Potassium (CozAAR 50 mg TAB) 50 mg DAILY PO 02/03/25 09:00 02/02/25 15:38 DC Magnesium Sulfate 50 ml @ 0 mls/hr PROTOCOL PRN IV MAGNESIUM PROTOCOL 02/02/25 04:30 03/04/25 04:29 Ondansetron HCl (zoFRAN 4MG INJ) 4 mg Q6H PRN IVP NAUSEA/VOMITING 02/02/25 04:30 03/04/25 04:29 Potassium Chloride 100 ml @ 100 mls/hr AD PRN IV POTASSIUM PROTOCOL 02/02/25 04:30 03/04/25 04:29 Potassium Chloride (K-Dur 10meq Sr Tab) 10 meq AD PRN PO POTASSIUM PROTOCOL 02/02/25 07:30 03/04/25 04:29 02/03/25 12:01 10 MEQ Potassium Chloride (K-Dur/Klor-Con 20meq) 10 meq AD PRN PO POTASSIUM PROTOCOL 02/02/25 04:30 02/02/25 07:20 DC Potassium Chloride (KCl 10% Elixir 20meq/15ml) 10 meq AD PRN PO POTASSIUM PROTOCOL 02/02/25 04:30 03/04/25 04:29 Temazepam (restORIL 15 MG CAP) 15 mg HS PRN PO INSOMNIA/SLEEP 02/02/25 04:30 03/04/25 04:29 DIAGNOSTICS / RADIOLOGY: [place] [id number] [id number] IMAGING REPORT Signed PATIENT: JORJE LÓPEZ MR#: [id number] : 1940 SEX: F AGE: 84 LOCATION: [facility] ORDER 2 STATUS: ADM IN REPORT#: [id number] SERVICE 2 REASON: CHEST PAIN ORDERING PHYSICIAN: SONY RAMIRES MD PROCEDURE: CXR1VW - CHEST 1VW CHEST 1VW REASON: CHEST PAIN COMPARISON: None. FINDINGS: Single view of the chest was obtained. Lungs are clear. Heart size is normal. There is no pulmonary vascular congestion. Mediastinum and bony thorax appear unremarkable. IMPRESSION: 1. Normal single view chest x-ray. DICTATED BY: NADINE RUIZ MD DATE: 02/02/251104 ELECTRONICALLY SIGNED BY: NADINE RUIZ MD DATE: 02/02/251108 ASSESSMENT: Symptomatic bradycardia, POA Hypertension, POA Acute on chronic kidney disease, GFR Diabetes mellitus with hyperglycemia Elevated CK level, POA Acute complicated cystitis, POA Acute headache, POA LVEF is 40-45%. RVSP is estimated 30-40 mmHg. Grade 1 diastolic dysfunction, per echo 12/02/24 Restless leg syndrome POA Chronic problem list: Paroxysmal atrial fibrillation Hyperlipidemia Hypertension Osteoarthritis Obesity, BMI 36.9 Obstructive sleep apnea, on CPAP at home PLAN: We will continue to monitor the patient in PCCU. Symptomatic bradycardia, POA Patient's heart rate ranging between 55-60. Cardiology consult appreciated and we will follow their recommendations. Cardiology recommended to hold metoprolol and also discontinued amiodarone because of bradycardia and tremors. If Her heart rate normal, cardiology is planning to add low-dose metoprolol heart rate tomorrow and discharge home if stable. Hypertension, POA Blood pressure is under control, 133/67 in the morning. Metoprolol was held and continue on amlodipine 5 mg. Continue to monitor her blood pressure. Acute complicated cystitis, POA Urine analysis is consistent with UTI, positive for leukocyte esterase, RBC and WBC. Urine culture showed mixed skin justin contamination. Discontinue IV ceftriaxone 2 g Q 24 H. Acute on chronic kidney disease, GFR Kidney functions showed BUN 17 and creatinine went up from 1.2 to 1.3. Likely from meloxicam that she has been taking for restless leg syndrome. We advised her to discontinue meloxicam and started on 0.25 mg ropinirole before bedtime. Continue to monitor. Diabetes mellitus with hyperglycemia Glucometer checks before meals and at bedtime with insulin regular sliding scale. Hypoglycemia protocol. Blood glucose within normal range Elevated CK level, POA Total CK level trending down to 126. We will continue to monitor CK level. LVEF is 40-45%. RVSP is estimated 30-40 mmHg. Grade 1 diastolic dysfunction, per echo 12/02/24 Patient takes furosemide at home and we will resume. BNP 69. Paroxysmal atrial fibrillation Resumed Eliquis 5 mg p.o. b.i.d. Cardiology recommended to discontinue amiodarone because of side effects bra dycardia and tremors. EKG showed sinus bradycardia on admission. Hyperlipidemia Atorvastatin 20 mg PO daily. Restless leg syndrome 0.25 mg ropinirole daily before bedtime. p.r.n. medications for: Pain management, nausea, vomiting, constipation, fever. DVT and GI prophylaxis: Arabella ATTESTATION BY PHYSICIAN I have seen and examined the patient. I reviewed the documentation, medical decision making, and treatment plan as noted by the resident provider above. I agree with the findings and plan of care. Presley Barahona MD, KRUPALI P MD Feb 03, 2025 13:41
[2025-02-03] MEDS: ropiNIRole HCL 0.25 MG TABLET PO SCH (20:48)
--- NOTE | 2025-02-03 21:40 | NUR ---
At 2047 requip was given to the pt for the 1st time for her restless legs. When I checked on her at 2117 the pt was complaining of left hand tremors. I assist her and her symptoms, then she started complaining that the back of her head was starting to hurt a little. I paged the hospital caption writer at [phone], At 2131 Deni Cheema called me back I told her about the new requip being the 1st dose tonight and how the pt started having tremors but they were starting to slow down now. Deni Cheema gave orders to continue to monitor the patient and to give 650mg Tylenol q6h for pain.
[2025-02-04] VITALS (7 sets, daily range): BP systolic 108–129; BP diastolic 35–62; PULSE 51–64; RESP 18–20; TEMP 97.7–98.2; O2SAT 98
[2025-02-04 03:47] LABS: BASOPHILS # (AUTO) 0.04 K/uL (0.00-0.20); BASOPHILS % (AUTO) 0.6 % (0.0-5.0); EOSINOPHILS # (AUTO) 0.14 K/uL (0.00-0.70); EOSINOPHILS % (AUTO) 1.9 % (0.0-8.0); HEMATOCRIT 35.9 % (36-48); IMMATURE GRANULOCYTE ABSOLUTE 0.02 K/uL (0-1); LYMPHOCYTES # (AUTO) 2.6 K/uL (1.0-4.8); LYMPHOCYTES % (AUTO) 35.8 % (21.0-51.0); MEAN CORPUSCULAR HEMOGLOBIN 32.5 pg (27.0-33.0); MEAN CORPUSCULAR HGB CONC 32.9 g/dL (32.0-36.0); MEAN CORPUSCULAR VOLUME 98.9 fL (79-99); MONOCYTES # (AUTO) 0.6 K/uL (0.1-1.0); MONOCYTES % (AUTO) 8.7 % (3.0-13.0); NEUTROPHILS # (AUTO) 3.8 K/uL (1.8-7.7); NEUTROPHILS % (AUTO) 52.7 % (40.0-77.0); PLATELET COUNT (AUTO) 204 K/uL (130-400); RED BLOOD CELL COUNT(AUTO) 3.63 MIL/uL (4.00-5.50); RED CELL DISTRIBUTION WIDTH 12.5 % (11.0-15.5); WHITE BLOOD COUNT (AUTO) 7.3 K/uL (4.8-10.8)
[2025-02-04 04:06] LABS: CREATININE 1.2 mg/dL (0.5-1.0); MAGNESIUM 2.1 mg/dL (1.80-2.40); POTASSIUM 4.4 mmol/L (3.5-5.1)
--- NOTE | 2025-02-04 07:22 | PN ---
[facility] Cardiology Progress Note CARDIOLOGY PROGRESS NOTE FEBRUARY 04, 2025 Primary director of intercollegiate athletics Dr. Shyam barahona Problems: 1. Symptomatic bradycardia on amiodarone and metoprolol 2. Tremor secondary to amiodarone 3. Paroxysmal atrial fibrillation 4. Chronic anticoagulation with apixaban 5. Hypertension The patient's metoprolol and amiodarone has been held. Heart rates were initially in the 50s. Heart rate today is in the 60s. Blood pressure running 110-120 systolic. The patient is afebrile. Hemoglobin 11.8 Potassium 4.4. Some tremor is still present. I have explained to the family that this may take several weeks to resolve. We will observe [id number] hours off medications. If heart rate remains above 60 she can be discharged home on metoprolol tartrate 12.5 mg b.i.d. and follow up with Dr. Meera Barahona. JODY SOLORZANO MD Feb 04, 2025 07:22
[2025-02-04] MEDS: metoPROLOL tartRATE 25 MG TAB PO SCH (08:31)
[2025-02-04] MEDS: LACTULOSE 20 GM/30 ML UDCUP PO PRN (11:25)
--- NOTE | 2025-02-04 16:18 | PN ---
[facility] PROGRESS NOTE Date of Service: Feb 04, 2025 Time of Service: 16:11 SUBJECTIVE: Ms. López is a 84-year-old female with a history of hypertension and AFib who presented [place] [facility] [place] evaluation of symptomatic bradycardia and hypertension. Daughter at bedside reported that her medications were readjusted by her oracle architect. She was taking amiodarone 200 mg a day and was decreased to 100 mg a day due to the amiodarone causing the patient to have a shaking side effects. Her losartan was stopped and she was placed on telmisartan. The patient was restarted on metoprolol after Dr. Barahona had removed it. The daughter at bedside reported that she is to take [id number] mg in the morning and if her blood pressure and heart rate are still high she could take metoprolol in the evening also. The daughter reported that her sister was giving the [id number] mg twice a day, and she gave it last night on 02/01/2025. The daughter reported she was given strict instructions to return to the ED if her heart rate falls below 60 beats per minute. The patient's heart rate went down to 50s, and fell sick, therefore her daughter brought her for evaluation. On arrival to ED the patient's heart rate was 56 bpm, but dropped as low as 40s (44 bpm). EKG: Sinus bradycardia, heart rate 56 bpm. Vital signs on arrival: BP 186/69, heart rate 60, respirations 20, 98% on room air. ED administered hydralazine 20 mg IV. ED physician spoke to Dr. Sol, oracle architect on-call for Dr. Barahona. He recommended holding the metoprolol as these patient's heart rate is now 55 bpm. Increase telmisartan by 20 mg or start amlodipine 5 mg. ED provider request patient be admitted with the diagnosis of bradycardia and hypertension. 02/02/25 patient was seen and examined today morning in ED 20. Spoke with her daughter on the phone. Patient is asymptomatic. She denies chest pain, chest pressure, fever or chills. On the monitor the pulse rate we will arranging from 45-55. Blood pressure was under control 125/58 mmHg with amlodipine 5 mg. Labs showed CBC unremarkable, CMP unremarkable. BUN 16 and creatinine 1.2. Troponin 20, BNP 69. Total creatinine kinase 235. Urine analysis is positive for UTI and the urine culture results pending. Continue IV ceftriaxone 2 g Q24 H. Chest x-ray unremarkable. Cardiology is consulted and we will follow their recommendations. 02/03/25 the patient was seen and examined. Her daughter is at the bedside. Patient denies any complaints. She is asymptomatic. Her treat ranges between 55-60 today. Blood pressure is under control 133/67. Video Control Engineer came by for evaluation. He recommended to discontinue amiodarone and hold metoprolol for today. If the heart rate stable, he will start her on low-dose of metoprolol tartrate tomorrow and likely discharge tomorrow if her heart rate is stable. Patient is complaining of restless leg, for which she takes meloxicam at home. Her kidney functions are deranged likely from meloxicam. BUN17 and creatinine 1.3. We will discontinue meloxicam and we will start her on ropinirole 0.25 mg daily at the night. Urine culture showed mixed skin justin contamination and we will discontinue IV Rocephin. 02/04/25 the patient was seen and evaluated today morning. Her daughter is at bedside. Patient denies any complaints today except bilateral leg pain. She reports having tremors yesterday night after receiving ropinirole. The tremors were likely from amiodarone. We will continue to monitor her. Her heart rate has been in 60s. Cardiology started her on low-dose of metoprolol tartrate 12.5 mg b.i.d. and after receiving her 1st dose of metoprolol her heart rate was 55 and blood pressure 126/59. Creatinine went down to 1.2. The plan is to monitor her heart rate and blood pressure for today with metoprolol tartrate. REVIEW OF SYSTEMS CONSTITUTIONAL: Denies fevers, chills, or night sweats. No unintentional weight loss reported. NEUROLOGICAL: Positive for Tremors yesterday night. Denies headache, amaurosis fugax, motor weakness, sensory deficit, vertigo/spinning sensation, gait abnormalities. ENT: No hearing loss, otalgia, otorrhea, rhinitis, rhinorrhea, hoarseness, or sore throat. CARDIOVASCULAR: Denies any exertional angina, dyspnea on exertion, orthopnea, paroxysmal nocturnal dyspnea, palpitations, life-threatening arrhythmias, claudication. PULMONARY: Denies any shortness of breath, cough, phlegm/sputum, hemoptysis, pleuritic chest pain. SLEEP: Denies morning headaches, daytime somnolence or napping. Denies difficulty falling asleep, staying asleep, waking from sleep. Denies knowledge of snoring. GASTROINTESTINAL: Denies any type of dysphagia to either liquids or solids. Denies nausea, vomiting, pyrosis, early satiety, abdominal pain, diarrhea, constipation, or changes in stool consistency or caliber. Denies coffee-ground emesis, hematemesis, hematochezia, or melanotic stools. GENITOURINARY: Denies frequency, urgency, nocturia, hematuria or incontinence (Storage/Irritative symptoms.) Low urinary stream, straining to void, urinary intermittency or hesitancy, splitting of the voiding stream, terminal dribbling. ENDOCRINOLOGIC: Denies polyuria, polydipsia, polyphagia or heat/cold into lerances. PHYSICAL EXAM GENERAL APPEARANCE: The patient is awake, alert, and oriented, in no acute cardiopulmonary distress. NECK: Supple. No JVD. No thyromegaly. No submental, submandibular, pre- /postauricular, occipital or supraclavicular lymphadenopathy. CHEST: Normal chest expansion. No Telemetry. LUNGS: Absence of any rales, rhonchi or any wheezing. CARDIOVASCULAR: Regular. S1 and S2 normal. No appreciable rubs, murmurs or gallops. ABDOMEN: Obese. Soft, nontender, and nondistended. There is no rebound, voluntary guarding, or rigidity. : Deferred. No Jolly. EXTREMITIES: Non-edematous and not cyanotic. No clubbing. Good capillary refill. SKIN: No skin breakdown. Vital Signs (last 8hr) Date Time Temp Pulse Resp B/P (MAP) Pulse Ox O2 Delivery O2 Flow Rate FiO2 02/04/25 12:00 98.2 55 18 126/59 99 Room Air LABS: Laboratory: Test 02/04/25 11:24 02/04/25 03:10 02/03/25 03:31 Range/Units Whole Blood Glucose 80 70-110 MG/DL White Blood Count 7.3 4.8-10.8 K/uL Red Blood Count 3.63 L 4.00-5.50 MIL/uL Hemoglobin 11.8 L 12.0-16.0 g/dL Hematocrit 35.9 L 36-48 % Mean Corpuscular Volume 98.9 79-99 fL Mean Corpuscular Hemoglobin 32.5 27.0-33.0 pg Mean Corpuscular Hemoglobin Concent 32.9 32.0-36.0 g/dL Red Cell Distribution Width 12.5 11.0-15.5 % Platelet Count 204 130-400 K/uL Mean Platelet Volume 11.3 H 7.5-10.5 fL Immature Granulocyte % (Auto) 0.3 0-1 % Neutrophils (%) (Auto) 52.7 40.0-77.0 % Lymphocytes (%) (Auto) 35.8 21.0-51.0 % Monocytes (%) (Auto) 8.7 3.0-13.0 % Eosinophils (%) (Auto) 1.9 0.0-8.0 % Basophils (%) (Auto) 0.6 0.0-5.0 % Neutrophils # (Auto) 3.8 1.8-7.7 K/uL Lymphocytes # (Auto) 2.6 1.0-4.8 K/uL Monocytes # (Auto) 0.6 0.1-1.0 K/uL Eosinophils # (Auto) 0.14 0.00-0.70 K/uL Basophils # (Auto) 0.04 0.00-0.20 K/uL Absolute Immature Granulocyte (auto 0.02 0-1 K/uL Nucleated Red Blood Cells 0.0 0.0-0.19 % Sodium Level 141 136-145 mmol/L Potassium Level 4.4 3.5-5.1 mmol/L Chloride Level 108 101-111 mmol/L Carbon Dioxide Level 31 21-32 mmol/L Blood Urea Nitrogen 18 7-18 mg/dL Creatinine 1.2 H 0.5-1.0 mg/dL Glomerular Filtration Rate Calc 44 >90 mL/min Random Glucose 99 70-105 mg/dL Total Calcium 8.8 8.5-10.1 mg/dL Magnesium Level 2.10 1.80-2.40 mg/dL Phosphorus Level 3.8 2.5-4.9 mg/dL Total Creatine Kinase 126 # 21-232 U/L Current Medications Medications (Trade) Dose Ordered Sig/Shelli Route PRN Reason Start Time Stop Time Status Last Admin Dose Admin Acetaminophen (TYLenol 325MG TAB) 650 mg Q6H PRN PO FEVER/MILD PAIN LEVEL 1-3 02/02/25 04:30 03/04/25 04:29 02/03/25 22:28 650 MG Acetaminophen (TYLenol 650MG SUPPOSITORY) 650 mg Q6H PRN RC FEVER / MILD PAIN 1-3 IF NPO 02/02/25 04:30 03/04/25 04:29 Amiodarone HCl (pacERONE 200MG) 100 mg DAILY PO 02/03/25 09:00 02/03/25 10:52 DC 02/03/25 08:58 100 MG Amlodipine Besylate (NorvASC 5MG TAB) 5 mg DAILY PO 02/02/25 09:00 03/04/25 08:59 02/04/25 08:28 5 MG Apixaban (EliquIS) 5 mg BID PO 02/02/25 09:00 03/04/25 08:59 02/04/25 08:28 5 MG Apixaban (EliquIS) 5 mg BID PO 02/02/25 21:00 02/02/25 15:20 DC Atorvastatin Calcium (LIPItor 10MG) 10 mg DAILY PO 02/03/25 09:00 02/02/25 15:20 DC Atorvastatin Calcium (LIPItor 20MG) 20 mg HS PO 02/02/25 21:00 03/04/25 20:59 02/03/25 20:48 20 MG Ceftriaxone Sodium (Rocephin 2gm Inj) 2 gm Q24H IVPB 02/02/25 08:10 02/03/25 13:30 DC 02/03/25 08:59 2 GM Dextrose (D50w) 50 ml AD PRN IV HYPOGLYCEMIA PROTOCOL 02/02/25 04:30 03/04/25 04:29 Docusate Sodium (COLace 100MG CAP) 100 mg BID PRN PO CONSTIPATION 02/02/25 04:30 03/04/25 04:29 Famotidine (Pepcid 20mg Tab) 20 mg DAILY PO 02/02/25 09:00 03/04/25 08:59 02/04/25 08:28 20 MG Glucagon (Glucagon 1mg Kit) 1 mg AD PRN IM HYPOGLYCEMIA PROTOCOL 02/02/25 04:30 03/04/25 04:29 Insulin Human Regular (humuLIN R 100 UNIT/ML 3ML) INSULIN SLIDING SCAL... ACBKFST SQ 02/03/25 07:30 03/05/25 07:29 Insulin Human Regular (humuLIN R 100 UNIT/ML 3ML) INSULIN SLIDING SCAL... ACHS SQ 02/02/25 07:30 02/02/25 17:50 DC Lactulose (Constulose 20gm/ 30ml Udcup) 20 gm Q6H PRN PO CONSTIPATION 02/02/25 04:30 03/04/25 04:29 02/04/25 11:25 20 GM Losartan Potassium (CozAAR 50 mg TAB) 50 mg DAILY PO 02/03/25 09:00 02/02/25 15:38 DC Magnesium Sulfate 50 ml @ 0 mls/hr PROTOCOL PRN IV MAGNESIUM PROTOCOL 02/02/25 04:30 03/04/25 04:29 Metoprolol Tartrate (loprESSOR) 12.5 mg BID PO 02/04/25 09:00 03/06/25 08:59 02/04/25 08:31 12.5 MG Ondansetron HCl (zoFRAN 4MG INJ) 4 mg Q6H PRN IVP NAUSEA/VOMITING 02/02/25 04:30 03/04/25 04:29 Potassium Chloride 100 ml @ 100 mls/hr AD PRN IV POTASSIUM PROTOCOL 02/02/25 04:30 03/04/25 04:29 Potassium Chloride (K-Dur 10meq Sr Tab) 10 meq AD PRN PO POTASSIUM PROTOCOL 02/02/25 07:30 03/04/25 04:29 02/03/25 12:01 10 MEQ Potassium Chloride (K-Dur/Klor-Con 20meq) 10 meq AD PRN PO POTASSIUM PROTOCOL 02/02/25 04:30 02/02/25 07:20 DC Potassium Chloride (KCl 10% Elixir 20meq/15ml) 10 meq AD PRN PO POTASSIUM PROTOCOL 02/02/25 04:30 03/04/25 04:29 Ropinirole HCl (ropiNIRole HCL) 0.25 mg DAILY PO 02/03/25 20:00 03/05/25 19:59 02/04/25 08:29 0.25 MG Temazepam (restORIL 15 MG CAP) 15 mg HS PRN PO INSOMNIA/SLEEP 02/02/25 04:30 03/04/25 04:29 DIAGNOSTICS / RADIOLOGY: [facility] [address] [place] [address] IMAGING REPORT Signed PATIENT: JORJE LÓPEZ MR#: [id number] : 1940 SEX: F AGE: 84 LOCATION: [facility] ORDER 2 STATUS: ADM IN REPORT#: [id number] SERVICE 2 REASON: CHEST PAIN ORDERING PHYSICIAN: SONY RAMIRES MD PROCEDURE: CXR1VW - CHEST 1VW CHEST 1VW REASON: CHEST PAIN COMPARISON: None. FINDINGS: Single view of the chest was obtained. Lungs are clear. Heart size is normal. There is no pulmonary vascular congestion. Mediastinum and bony thorax appear unremarkable. IMPRESSION: 1. Normal single view chest x-ray. DICTATED BY: NADINE RUIZ MD DATE: 02/02/251104 ELECTRONICALLY SIGNED BY: NADINE RUIZ MD DATE: 02/02/251108 ASSESSMENT: Symptomatic bradycardia, POA Hypertension, POA Acute on chronic kidney disease, GFR Diabetes mellitus with hyperglycemia Elevated CK level, POA Acute complicated cystitis, POA Acute headache, POA LVEF is 40-45%. RVSP is estimated 30-40 mmHg. Grade 1 diastolic dysfunction, per echo 12/02/24 Restless leg syndrome POA Chronic problem list: Paroxysmal atrial fibrillation Hyperlipidemia Hypertension Osteoarthritis Obesity, BMI 36.9 Obstructive sleep apnea, on CPAP at home PLAN: We will continue to monitor the patient in [facility]U. Symptomatic bradycardia, POA Patient's heart rate in 60s. Cardiology consult appreciated and we will follow their recommendations. Cardiology recommended started her on metoprolol 12.5 mg b.i.d. and recommended to monitor her for 24 hour. If Her heart rate normal, plan is for discharge tomorrow Hypertension, POA Blood pressure is under control, 126/59 in the morning. Metoprolol was added and continue on amlodipine 5 mg. Continue to monitor her blood pressure. Acute complicated cystitis, POA Urine analysis is consistent with UTI, positive for leukocyte esterase, RBC and WBC. Urine culture showed mixed skin justin contamination. Discontinue IV ceftriaxone 2 g Q 24 H. Acute on chronic kidney disease, GFR Kidney functions showed creatinine went down from 1.3 to 1.2. Likely from meloxicam that she has been taking for restless leg syndrome. Continue on 0.25 mg ropinirole before bedtime. Continue to monitor. Diabetes mellitus with hyperglycemia Glucometer checks before meals and at bedtime with insulin regular sliding scale. Hypoglycemia protocol. Blood glucose within normal range Elevated CK level, POA Total CK level trending down. We will continue to monitor CK level. LVEF is 40-45%. RVSP is estimated 30-40 mmHg. Grade 1 diastolic dysfunction, per echo 12/02/24 Patient takes furosemide at home and we will resume. BNP 69. Paroxysmal atrial fibrillation Resumed Eliquis 5 mg p.o. b.i.d. Cardiology recommended to discontinue amiodarone because of side effects bradycardia and tremors. EKG showed sinus bradycardia on admission. Hyperlipidemia Atorvastatin 20 mg PO daily. Restless leg syndrome 0.25 mg ropinirole daily before bedtime. p.r.n. medications for: Pain management, nausea, vomiting, constipation, fever. DVT and GI prophylaxis: Arabella ATTESTATION BY PHYSICIAN I have seen and examined the patient. I reviewed the documentation, medical decision making, and treatment plan as noted by the resident provider above. I agree with the findings and plan of care. Presley Barahona MD, KRUPALI P MD Feb 04, 2025 16:18
[2025-02-05 03:40] VITALS: BP 126/52; PULSE 78; RESP 20; TEMP 98
[2025-02-05 04:04] LABS: BASOPHILS # (AUTO) 0.05 K/uL (0.00-0.20); BASOPHILS % (AUTO) 0.7 % (0.0-5.0); EOSINOPHILS # (AUTO) 0.21 K/uL (0.00-0.70); EOSINOPHILS % (AUTO) 2.7 % (0.0-8.0); HEMATOCRIT 39.3 % (36-48); IMMATURE GRANULOCYTE ABSOLUTE 0.01 K/uL (0-1); LYMPHOCYTES # (AUTO) 3.2 K/uL (1.0-4.8); MEAN CORPUSCULAR HGB CONC 32.3 g/dL (32.0-36.0); MONOCYTES # (AUTO) 0.7 K/uL (0.1-1.0); MONOCYTES % (AUTO) 9.4 % (3.0-13.0); NEUTROPHILS # (AUTO) 3.5 K/uL (1.8-7.7); NEUTROPHILS % (AUTO) 45.1 % (40.0-77.0); PLATELET COUNT (AUTO) 229 K/uL (130-400); RED BLOOD CELL COUNT(AUTO) 3.97 MIL/uL (4.00-5.50); RED CELL DISTRIBUTION WIDTH 12.3 % (11.0-15.5); WHITE BLOOD COUNT (AUTO) 7.7 K/uL (4.8-10.8)
[2025-02-05 04:22] LABS: CREATININE 1.1 mg/dL (0.5-1.0); MAGNESIUM 2.1 mg/dL (1.80-2.40); POTASSIUM 3.9 mmol/L (3.5-5.1)
[2025-02-05 08:10] VITALS: O2SAT 98
[2025-02-05 08:16] VITALS: BP 115/55; PULSE 60; RESP 16; TEMP 97.6
--- NOTE | 2025-02-05 12:42 | PN ---
[facility] CARDIOLOGY PROGRESS NOTE Date Patient Seen: Feb 05, 2025 Time of Visit: 12:22 Interval History: This is an 84-year-old Latin-Cro[place] female patient of Dr. Pam delarosa with a past medical history of hypertension, paroxysmal atrial fibrillation on long- term Eliquis anticoagulation, on antiarrhythmic therapy with amiodarone, was evaluated recently on 01/31/[address] [facility] office when she presented with uncontrolled hypertension and episode of heart rate into the 120 beat per minute range. She had previously been hospitalized 12/07/2024 through 12/13/2024 with paroxysmal episodes of atrial fibrillation with rapid ventricular response. She had been on amiodarone 200 mg p.o. daily and had been compliant with Eliquis 5 mg p.o. b.i.d.. Previously on 12/21/2024, metoprolol tartrate 25 mg p.o. b.i.d. was withdrawn due to resting bradycardia with a heart rate of 53 beats per minute. She had also noted tremor since beginning amiodarone therapy. An EKG in the office on 01/31/2025 demonstrated a sinus rhythm with a heart rate of 61 beats per minute. Amiodarone was reduced to 100 mg daily and metoprolol tartrate was reduced to 25 mg p.o. daily. The patient presented on 02/02/2025 after she was noted to have heart rates in the 30 beat per minute range. Her amiodarone and metoprolol were withdrawn on admission. Metoprolol tartrate was resumed at 12.5 mg p.o. b.i.d. on 02/04/2025. She has had heart rates into the 46 beat per minute range at 11:30 a.m. today rising to use 68-70 beat per minutes with ambulation. She offers no complaints of dizziness, near-syncope or syncope. Her tremors which were attributed to amiodarone are improving. Physical Examination: GENERAL: No acute distress. HEAD: Normal with no signs of head trauma. EYES: PERRLA, EOMI, conjunctiva and sclera normal. NECK: Supple without JVD. There is no tenderness, lymphadenopathy, or masses. No thyromegaly. Normal carotid upstrokes without bruits. LUNGS: Clear breath sounds bilaterally. No wheezes, or rhonchi. HEART: Normal rate and rhythm. Normal S1 and S2 without murmurs, gallop or rub. VASC: Peripheral pulses +2 bilaterally. EXT: No clubbing, cyanosis or edema. NEURO: Awake, alert, and oriented x3. No focal neurological deficits noted. Laboratory: Hematology Labs: Test 02/05/25 03:50 Range/Units White Blood Count 7.7 4.8-10.8 K/uL Red Blood Count 3.97 L 4.00-5.50 MIL/uL Hemoglobin 12.7 12.0-16.0 g/dL Hematocrit 39.3 36-48 % Mean Corpuscular Volume 99.0 79-99 fL Mean Corpuscular Hemoglobin 32.0 27.0-33.0 pg Mean Corpuscular Hemoglobin Concent 32.3 32.0-36.0 g/dL Red Cell Distribution Width 12.3 11.0-15.5 % Platelet Count 229 130-400 K/uL Mean Platelet Volume 11.2 H 7.5-10.5 fL Immature Granulocyte % (Auto) 0.1 0-1 % Neutrophils (%) (Auto) 45.1 40.0-77.0 % Lymphocytes (%) (Auto) 42.0 21.0-51.0 % Monocytes (%) (Auto) 9.4 3.0-13.0 % Eosinophils (%) (Auto) 2.7 0.0-8.0 % Basophils (%) (Auto) 0.7 0.0-5.0 % Neutrophils # (Auto) 3.5 1.8-7.7 K/uL Lymphocytes # (Auto) 3.2 1.0-4.8 K/uL Monocytes # (Auto) 0.7 0.1-1.0 K/uL Eosinophils # (Auto) 0.21 0.00-0.70 K/uL Basophils # (Auto) 0.05 0.00-0.20 K/uL Absolute Immature Granulocyte (auto 0.01 0-1 K/uL Nucleated Red Blood Cells 0.0 0.0-0.19 % Chemistry Labs: Test 02/05/25 03:50 02/04/25 11:24 Range/Units Sodium Level 142 136-145 mmol/L Potassium Level 3.9 3.5-5.1 mmol/L Chloride Level 106 101-111 mmol/L Carbon Dioxide Level 30 21-32 mmol/L Blood Urea Nitrogen 16 7-18 mg/dL Creatinine 1.1 H 0.5-1.0 mg/dL Glomerular Filtration Rate Calc 49 >90 mL/min Random Glucose 89 70-105 mg/dL Total Calcium 9.2 8.5-10.1 mg/dL Magnesium Level 2.10 1.80-2.40 mg/dL Whole Blood Glucose 80 70-110 MG/DL Diagnostics / Radiology: Impression and Plan: Symptomatic bradycardia into the 40 beat per minute range while on combination amiodarone 100 mg daily and metoprolol tartrate 25 mg daily: Tremors secondary to amiodarone status post withdrawal of amiodarone 02/02/2025: -the patient was restarted on metoprolol tartrate 12.5 mg p.o. b.i.d. on 02/04/2025 with heart rate noted at 46 at 11:30 a.m. this morning with a heart rates primarily in the 40-50 beat per minute range, improving into the 70 beat per minute range with activity -amiodarone has been withdrawn and at this point we will reduce metoprolol tartr ate to 12.5 mg p.o. twice a day -recommend follow-up with Dr. Pam Delarosa next week with an EKG on arrival Paroxysmal Atrial fibrillation on chronic anticoagulation with Eliquis: Tremors noted to have resolved 02/05/2025 with withdrawal of amiodarone therapy: The patient had a single episode of atrial fibrillation clinically November 2024 in the setting of emotional excitement after seen her son recovered from back surgery: Tremors with amiodarone status post withdrawal of amiodarone 02/02/2025: -the patient has had one clinical episode of atrial fibrillation in the setting of emotional happiness and this may be a variant of takotsubo. She may not develop recurrent AFib. -continue for now with rate control with a very low-dose metoprolol tartrate 12.5 mg p.o. twice a day -consider a 2 week mobile industrial cleaner on follow-up visit with Dr. Pam Delarosa (status post withdrawal of amiodarone 02/02/2025) Hypertension: -blood pressure controlled on current drug therapy. PHYSICIAN ATTESTATION OF PHYSICIAN HYDRODYNAMICS PROFESSOR DOCUMENTATION: I attest that I was physically present for the rowe portions of the service and evaluated the patient with the Physician Pegger, and I reviewed and discussed the case with the Physician Pegger and made modifications to the Physician Pegger's findings and plans of care as documented above CASI ZAYAS Feb 05, 2025 12:42 LEBRON ABDUL MD Feb 05, 2025 14:36
[2025-02-05 12:48] VITALS: BP 126/65; PULSE 53; RESP 16; TEMP 97.6
[2025-02-05] MEDS ORDERED: METO25TA6 PO (14:32)
[2025-02-05] MEDS ORDERED: ROPI0.2535 PO (15:12)
--- NOTE | 2025-02-05 15:21 | DS ---
Discharge Summary Hospital Course Summary: Ms. López is a 84-year-old female with a history of hypertension and AFib who presented to [facility] on 02/02/25 for evaluation of symptomatic bradycardia and hypertension. Daughter at bedside reported that her medications were readjusted by her atmospheric technician. She was taking amiodarone 200 mg a day and was decreased to 100 mg a day due to the amiodarone causing the patient to have a shaking side effects. Her losartan was stopped and she was placed on telmisartan. The patient was restarted on metoprolol after Dr. Barahona had removed it. The daughter at bedside reported that she is to take metoprolol 25 mg in the morning and if her blood pressure and heart rate are still high she could take metoprolol in the evening also. The daughter reported that her sister was giving the metoprolol 25 mg twice a day, and she gave it last night on 02/01/2025. The daughter reported she was given strict instructions to return to the ED if her heart rate falls below 60 beats per minute. The patient's heart rate went down to 50s, and fell sick, therefore her daughter b rought her for evaluation. On arrival to ED the patient's heart rate was 56 bpm, but dropped as low as 40s (44 bpm). EKG: Sinus bradycardia, heart rate 56 bpm. Vital signs on arrival: BP 186/69, heart rate 60, respirations 20, 98% on room air. ED administered hydralazine 20 mg IV. ED physician spoke to Dr. Sol, atmospheric technician on-call for Dr. Barahona. He recommended holding the metoprolol as these patient's heart rate is now 55 bpm. Patient was admitted with the diagnosis of bradycardia and hypertension. On 02/02/25, patient was asymptomatic. On the monitor the pulse rate was arranging from 45-55. Blood pressure was under control 125/58 mmHg with amlodipine 5 mg. Labs showed CBC unremarkable, CMP unremarkable. BUN 16 and creatinine 1.2. Troponin 20, BNP 69. Total creatinine kinase 235. Urine analysis is positive for UTI, started on IV ceftriaxone2 g Q 24H. On 02/03/25, heart rate ranging between 55-60. Blood pressure under control 133/67. Dr. Munoz discontinued amiodarone due to tremors and bradycardia, he also held metoprolol. And monitored her heart rate which were in 60s without metoprolol. BUN17 and creatinine 1.3. We discontinued meloxicam and started her on ropinirole 0.25 mg before bedtime for restless leg syndrome. Urine culture showed mixed skin justin contamination and we discontinued IV Rocephin. On 02/04/25, she was complaining of bilateral leg pain. She was started on low-dose metoprolol tartrate 12.5 mg b.i.d. by Cardiology and monitored her for24 hours. Creatinine went down to 1.2. On 02/05/25, patient is clinically stable for discharge. Cardiology cleared her for discharge. They recommended to continue metoprolol tartrate 12.5 mg b.i.d. her heart rate dropped in higher 40s, thinking could be because of amiodarone. CBC unremarkable. BUN 16 and creatinine 1.1. Patient to continue home medications as prescribed except metoprolol tartrate lower down to 12.5 mg b.i.d. amiodarone and meloxicam discontinued. Ropinirole 0.25 mg before bedtime added for restless leg syndrome. Patient is advised to check her blood pressure and heart rate twice a day at home. She is advised to not take metoprolol tartrate if heart rate below 50. She is advised to follow up with PCP within 3- 5 days after the discharge. Follow up with Cardiology Dr.Danielle Barahona in 1 week after discharge. Licensed Journeyman Electrician(s): Cardiology : , Dr. Munoz Procedure(s): [address] [id number] IMAGING REPORT Signed PATIENT: JORJE LÓPEZ MR#: [id number] : 1940 SEX: F AGE: 84 LOCATION: EDHIP ORDER 012 STATUS: ADM IN REPORT#: [id number] SERVICE 2 REASON: CHEST PAIN ORDERING PHYSICIAN: SONY RAMIRES MD PROCEDURE: CXR1VW - CHEST 1VW CHEST 1VW REASON: CHEST PAIN COMPARISON: None. FINDINGS: Single view of the chest was obtained. Lungs are clear. Heart size is normal. There is no pulmonary vascular congestion. Mediastinum and bony thorax appear unremarkable. IMPRESSION: 1. Normal single view chest x-ray. DICTATED BY: NADINE RUIZ MD DATE: 02/02/251104 ELECTRONICALLY SIGNED BY: NADINE RUIZ MD DATE: 02/02/251108 [facility] [address] [place] [address] ELECTRO CARDIOGRAM Signed PATIENT: JORJE LÓPEZ MR#: [id number] : 1940 SEX: F AGE: 84 LOCATION: EDHIP ROOM/BED: ED-20 ORDER [id number] REPORT#: [id number] REASON: ORDERING PHYSICIAN: SONY RAMIRES MD PROCEDURE: EKG - 12 LEAD EKG TRACING- TECHNICAL [facility] Test Date: 2025-02-02 Test Time: 01:11:02 Pat Name: JORJE LÓPEZ Department: EDHIP Room: ED 20 Gender: F Bumper Operator: [id number] : 1940 Requested By: SONY RAMIRES Order Number: [id number] Reading MD: Rick Acevedo Measurements Intervals [place] Rate: 56 P: 28 SC: 148 QRS: 10 QRSD: 101 T: 46 QT: 467 QTc: 453 Interpretive Statements Sinus rhythm Compared to ECG 01/25/2019 19:23:50 No significant changes Electronically Signed On 02-02-2025 11:35:06 CDT by Rick Acevedo Please click the below link to view image of tracing. Assessment/Plan: ASSESSMENT: Symptomatic bradycardia, POA Hypertension, POA Acute on chronic kidney disease, GFR Diabetes mellitus with hyperglycemia Elevated CK level, POA Acute complicated cystitis, POA Acute headache, POA LVEF is 40-45%. RVSP is estimated 30-40 mmHg. Grade 1 diastolic dysfunction, per echo 12/02/24 Restless leg syndrome POA Chronic problem list: Paroxysmal atrial fibrillation Hyperlipidemia Hypertension Osteoarthritis Obesity, BMI 36.9 Obstructive sleep apnea, on CPAP at home Discharge Instructions: ADMISSION DATE : 02/02/25 DISCHARGE DATE : 02/05/25 DISPOSITION : Home CONDITION : Stable Licensed Journeyman Electrician(s) : Cardiology : , FOLLOW UP APPOINTMENTS : Patient to follow-up with the PCP within 3-5 days and with Cardiology Dr.Danielle Barahona in 1 week upon discharge. PROCEDURES : None IMAGING (s) : Report attached to summary : Chest x-ray and EKG MICROBIOLOGY : None ACTIVITY : ab kristina HOME MEDICATIONS : Continue NEW MEDICATIONS : Changed the dose of metoprolol tartrate to 12.5 mg b.i.d. Discontinued amiodarone and meloxicam Ropinirole 0.25 mg p.o. before bedtime TEACHING : We reinforced the importance of medication compliance and with follow up appointments. Advised patient to follow-up with the PCP within 3-5 days and with Cardiology Dr.Danielle Barahona in 1 week upon discharge. Emergency instructions : The patient was instructed to present to the nearest Emergency Department or call 911 should their symptoms return or worsen. Home Medications: Reported Medications Meloxicam (Meloxicam) 15 Mg Tablet, 1 TAB PO DAILY for 30 Days, #30 TAB 0 Refills 02/02/25 Furosemide (Furosemide) 20 Mg Tablet, 1 TAB PO DAILY for 30 Days, #30 TAB 0 Refills 02/02/25 Omeprazole (Omeprazole) 20 Mg Capsule.dr, 1 CAP PO DAILY for 30 Days, #30 CAP 0 Refills 02/02/25 Amiodarone HCl (Amiodarone HCl) 100 Mg Tablet, 1 TAB PO DAILY for 30 Days, #30 TAB 0 Refills 02/02/25 Atorvastatin Calcium (LIPITOR) 20 Mg Tab, 1 TAB PO DAILY for 30 Days, #30 TAB 0 Refills 25 Telmisartan (Telmisartan) 40 Mg Tablet, 1 TAB PO DAILY for 30 Days, #30 TAB 0 Refills 02/02/25 Metoprolol Tartrate (Metoprolol Tartrate) 25 Mg Tablet, 1 TAB PO DAILY for 30 Days, #60 TAB 0 Refills 02/02/25 Apixaban (Eliquis) 5 Mg Tablet, 1 TAB PO BID for 30 Days, #60 TAB 0 Refills 02/02/25 Discontinued Reported Medications Metoprolol Tartrate (Metoprolol Tartrate) 50 Mg Tablet, 1 TAB PO DAILYDINNER for 30 Days, #60 TAB 0 Refills 02/02/25 Cetirizine HCl (Cetirizine HCl) 10 Mg Tablet, 10 MG PO HSPRN PRN for ITCHING, TAB 05/22/18 Losartan Potassium (Losartan Potassium) 100 Mg Tablet, 100 MG PO DAILY, TAB 05/22/18 Discontinued Scripts Metronidazole (Metronidazole) 500 Mg Tablet, 500 MG PO BID for 7 Days, #14 TAB Prov:ANKIT RIVAS MD 10/02/22 Ciprofloxacin HCl (Cipro) 500 Mg Tablet, 500 MG PO BID for 7 Days, #14 TAB Prov:ANKIT RIVAS MD 10/02/22 Metronidazole (Flagyl) 250 Mg Tablet, 250 MG PO TID for 5 Days, #15 TAB Prov:DONATO [facility]RISTY [facility] 05/25/18 Levofloxacin (Levaquin) 500 Mg Tablet, 500 MG PO DAILY for 5 Days, #5 TAB Prov:DONATO CHRISTY [facility] 05/25/18 New Medications: Metoprolol Tartrate (Metoprolol Tartrate) 25 Mg Tablet 12.5 MG PO BID, #90 TAB 3 Refills Ropinirole HCl (Ropinirole HCl) 0.25 Mg Tablet 0.25 MG PO DAILY, #30 TAB Continued Medications: Apixaban (Eliquis) 5 Mg Tablet 1 TAB PO BID for 30 Days, #60 TAB 0 Refills Atorvastatin Calcium (Lipitor) 20 Mg Tab 1 TAB PO DAILY for 30 Days, #30 TAB 0 Refills Furosemide (Furosemide) 20 Mg Tablet 1 TAB PO DAILY for 30 Days, #30 TAB 0 Refills Omeprazole (Omeprazole) 20 Mg Capsule.dr 1 CAP PO DAILY for 30 Days, #30 CAP 0 Refills Telmisartan (Telmisartan) 40 Mg Tablet 1 TAB PO DAILY for 30 Days, #30 TAB 0 Refills Discontinued Medications: Amiodarone HCl (Amiodarone HCl) 100 Mg Tablet 1 TAB PO DAILY for 30 Days, #30 TAB 0 Refills Meloxicam (Meloxicam) 15 Mg Tablet 1 TAB PO DAILY for 30 Days, #30 TAB 0 Refills Metoprolol Tartrate (Metoprolol Tartrate) 25 Mg Tablet 1 TAB PO DAILY for 30 Days, #60 TAB 0 Refills Time spent arranging discharge: 31-60 minutes ATTESTATION BY PHYSICIAN I have seen and examined the patient. I reviewed the documentation, medical decision making, and treatment plan as noted by the resident provider above. I agree with the findings and plan of care. Presley Barahona MD, KRUPALI P MD Feb 05, 2025 15:21
--- NOTE | 2025-02-05 16:50 | NUR ---
DISCHARGE D/C INSTRUCTIONS GIVEN TO PT AND FAMILY ALL VERBALIZED UNDERSTANDING. IV AND TELE PACK REMOVED. PT ESCORTED VIA WHEELCHAIR TO PRIVATE CAR IN STABLE CONDITION.
== END 2025-02-05 16:52 | disposition home or self-care (01) | DRG 305 ==
LOC: EDH 01:08 → EDHIP 04:09 → 2AH 14:15
PROVIDERS: ADMIT Internal Medicine; ATTEND Internal Medicine
DX: I16.0 Hypertensive urgency (principal); N30.00 Acute cystitis without hematuria; R00.1 Bradycardia, unspecified; I12.9 Hypertensive chronic kidney disease with stage 1 through stage 4 chronic kidney disease, or unspecified chronic kidney disease; N18.9 Chronic kidney disease, unspecified; I48.0 Paroxysmal atrial fibrillation; E11.22 Type 2 diabetes mellitus with diabetic chronic kidney disease; T46.2X5A Adverse effect of other antidysrhythmic drugs, initial encounter; E11.65 Type 2 diabetes mellitus with hyperglycemia; E66.9 Obesity, unspecified; E78.5 Hyperlipidemia, unspecified; G47.33 Obstructive sleep apnea (adult) (pediatric); Z79.01 Long term (current) use of anticoagulants; Z79.899 Other long term (current) drug therapy; Z68.37 Body mass index [BMI] 37.0-37.9, adult; Z88.6 Allergy status to analgesic agent; Z88.7 Allergy status to serum and vaccine
CPT/HCPCS: 36415; 71045; 80048; 81001; 82550; 82948; 83735; 83880; 84100; 84484; 85025; 85027; 87086; 93005; 99285; G0378; J0360; J0696

== ENCOUNTER 2025-02-24 15:42 | Emergency (ER) | payer OTHER, MEDICAID ==
[~2025-02-24] VITALS: Ht 154.9 cm; Wt 90.7 kg
[~2025-02-24 15:42] MED LIST changes: +APIX5TAB PO; +ATOR10 PO; -CETI10TA57 PO; -CIPR-278 PO; +DRON400T7 PO; +FLUC100T PO; -LEVO500T2 PO; -LOSA100T59 PO; -METR-172 PO; -METR250T PO; +OMEP20CA12 PO; +TELM20TA8 PO; +TRAM-543 PO
--- NOTE | 2025-02-24 15:50 | ERN ---
ED Note History of Present Illness Stated Complaint: FEVER Chief Complaint: Generalized Body Aches Time Seen by MD: 15:47 Time Seen by Midlevel: 16:00 Dictation: Ms. López is a 84 year old female with history of atrial fibrillation, hypertension, GERD, KELLY, and obesity who presented to the Emergency Department this afternoon for evaluation of fever. She states that this morning she developed body aches, fever, chills, and has "hand tremors". Her family member states that she has been experiencing frequent/recurrent UTI. She was diagnosed with UTI; treatment with Rocephin. She has also been experiencing intermittent tachycardia/rapid atrial fibrillation. They had discontinued Amiodarone because they felt it was causing tremors. She was placed on Multaq but now is concerned that she is having tremors from this medication as well. She was seen at PCP's office (Dr. oBb Ramírez) and had fever so she was referred to hospital. He was going to prescribe course of around two one. Review of urine culture report from 02/17: gram positive cocci; enterococcus faecalis Allergies: Coded Allergies: aspirin (Unverified Allergy, Unknown, 05/22/18) iodine (Unverified Allergy, Unknown, HALLUCINATIONS, 10/02/22) tetanus toxoid, adsorbed (Unverified Allergy, Unknown, 05/22/18) Home Meds Active Scripts Dronedarone Hydrochloride (Multaq) 400 Mg Tablet, 1 TAB PO BID for 30 Days, #60 TAB 0 Refills Prov:CHRISTEL REN MD 02/20/25 Fluconazole (Diflucan) 100 Mg Tablet, 1 TAB PO DAILY for 3 Days, #3 TAB 0 Refills Prov:CHRISTEL REN MD 02/20/25 Reported Medications Telmisartan (Telmisartan) 20 Mg Tablet, 1 TAB PO DAILY 02/18/25 Tramadol HCl/Acetaminophen (Tramadol-Acetaminophn 37.5-325) 37.5 Mg-325 Mg Tablet, 1 TAB PO BID PRN for PAIN 02/18/25 Omeprazole (Omeprazole) 20 Mg Capsule.dr, 1 CAP PO DAILY for 30 Days, #30 CAP 0 Refills 02/02/25 Atorvastatin Calcium (LIPITOR) 20 Mg Tab, 1 TAB PO DAILY for 30 Days, #30 TAB 0 Refills 02/02/25 Apixaban (Eliquis) 5 Mg Tablet, 1 TAB PO BID for 30 Days, #60 TAB 0 Refills 02/02/25 Discontinued Reported Medications Furosemide (Furosemide) 20 Mg Tablet, 1 TAB PO DAILY for 30 Days, #30 TAB 0 Refills 02/02/25 Telmisartan (Telmisartan) 40 Mg Tablet, 1 TAB PO DAILY for 30 Days, #30 TAB 0 Refills 02/02/25 Discontinued Scripts Metoprolol Tartrate (Metoprolol Tartrate) 25 Mg Tablet, 12.5 MG PO BID, #90 TAB 3 Refills Prov:LEBRON ABDUL MD 02/05/25 Ropinirole HCl (Ropinirole HCl) 0.25 Mg Tablet, 0.25 MG PO DAILY, #30 TAB Prov:SUSAN HAZEL MD 02/05/25 Past Medical History Past Medical History: A-Fib, Hypertension Surgical History: None PSYCH History: no pertinent psych hx Family History: CAD, HTN Social History: Negative, Lives with family History: Not Applicable RN Note Reviewed/Agreed w/PFSH: Yes Review of System Dictation REVIEW OF SYSTEMS: CONSTITUTIONAL: Patient denies sweats and weight changes. Reports fatigue and general weakness. Reports intermittent fever and chills. EYES: Patient denies any visual symptoms. EARS, NOSE, AND THROAT: No difficulties with hearing. No symptoms of rhinitis or sore throat. CARDIOVASCULAR: Patient denies chest pains, palpitations, orthopnea and paroxysmal nocturnal dyspnea. Reports history of atrial fibillation with rapid ventricular response. Amiodarone was discontinued and she was placed on Multaq. RESPIRATORY: No dyspnea on exertion, no wheezing or cough. GI: No nausea, vomiting, diarrhea, constipation, abdominal pain, hematochezia or melena. : No urinary hesitancy or dribbling. No hematuria. No abnormal urethral discharge. Reports frequent UTI. MUSCULOSKELETAL: Reports body aches. Reports bilateral leg pain; worse at night. NEUROLOGIC: No chronic headaches, no seizures. Patient denies numbness, tingling or weakness. Reporting tremors in hands which she believes is from medication (Multaq) PSYCHIATRIC: Patient denies problems with mood disturbance. No problems with anxiety. ENDOCRINE: No excessive urination or excessive thirst. DERMATOLOGIC: Patient denies any rashes or skin changes. Initial Vital Sign VS Vital Signs Date Time Temp Pulse Resp B/P (MAP) Pulse Ox O2 Delivery O2 Flow Rate FiO2 02/24/25 15:43 97.9 82 18 162/66 97 Room Air 0 02/24/25 18:12 21 Physical Exam Dictation Vital signs: Reviewed. Afebrile Constitutional: No acute distress. Non-toxic appearing. Pleasant Head/Face: Normocephalic, atraumatic. Eyes: Periorbital areas with no swelling, redness, or edema. Lids and lashes are normal. Conjunctival injection is absent. Sclera anicteric. Pupils equal, round, reactive to light. ENT: Pinnas intact and no signs of trauma or erythema. Ear canals clear and no discharge. TMs no erythema. No nasal discharge or bleeding noted. Oropharynx with no exudate, redness, swelling, masses, exudates, or evidence of obstruction. Uvula midline. Mucous membranes moist. Neck: Trachea midline, no masses palpated, and no cervical lymphadenopathy. No swelling. Supple, full range of motion. Chest/Axilla: No tenderness, no crepitus, no paradoxical movement, no retractions. Cardiovascular: Regular rate, regular rhythm, no murmur, no gallops. Symmetric pulses. No peripheral edema. Twelve lead EKG reflects a sinus rhythm without ST elevation or depression. BP 162/66 Respiratory: Respirations even and unlabored. Lung sounds clear; no wheezes, rales or rhonchi. Room air SpO2 97% Gastrointestinal: Obese. No distention is appreciated. Bowel sounds are normal. No mass or organomegaly . There is no tenderness. No rebound. No rigidity. No voluntary or involuntary guarding. No Villarreal's sign. Neurological: Normal speech, gross motor function intact, gross sensory function intact. No focal weakness/Paresthesia. Musculoskeletal/Extremities: All extremities have full range of motion, no pain or tenderness on palpation. Symmetric pulses. Integumentary: Intact. Skin is normal color, warm and dry. Cap refill less than 3 seconds. Results (Laboratory/Radiology) Laboratory/Radiology Laboratory Tests Test 02/24/25 16:08 02/24/25 16:43 02/24/25 17:12 White Blood Count 7.0 K/uL (4.8-10.8) Red Blood Count 3.54 MIL/uL (4.00-5.50) L Hemoglobin 11.5 g/dL (12.0-16.0) L Hematocrit 34.9 % (36-48) L Mean Corpuscular Volume 98.6 fL (79-99) Mean Corpuscular Hemoglobin 32.5 pg (27.0-33.0) Mean Corpuscular Hemoglobin Concent 33.0 g/dL (32.0-36.0) Red Cell Distribution Width 12.7 % (11.0-15.5) Platelet Count 223 K/uL (130-400) Mean Platelet Volume 11.2 fL (7.5-10.5) H Immature Granulocyte % (Auto) 0.3 % (0-1) Neutrophils (%) (Auto) 58.0 % (40.0-77.0) Lymphocytes (%) (Auto) 31.1 % (21.0-51.0) Monocytes (%) (Auto) 8.5 % (3.0-13.0) Eosinophils (%) (Auto) 1.7 % (0.0-8.0) Basophils (%) (Auto) 0.4 % (0.0-5.0) Neutrophils # (Auto) 4.0 K/uL (1.8-7.7) Lymphocytes # (Auto) 2.2 K/uL (1.0-4.8) Monocytes # (Auto) 0.6 K/uL (0.1-1.0) Eosinophils # (Auto) 0.12 K/uL (0.00-0.70) Basophils # (Auto) 0.03 K/uL (0.00-0.20) Absolute Immature Granulocyte (auto 0.02 K/uL (0-1) Nucleated Red Blood Cells 0.0 % (0.0-0.19) Sodium Level 140 mmol/L (136-145) Potassium Level 4.1 mmol/L (3.5-5.1) Chloride Level 104 mmol/L (101-111) Carbon Dioxide Level 27 mmol/L (21-32) Blood Urea Nitrogen 14 mg/dL (7-18) Creatinine 1.2 mg/dL (0.5-1.0) H Glomerular Filtration Rate Calc 44 mL/min (>90) Random Glucose 94 mg/dL (70-105) Lactic Acid Level 1.6 mmol/L (0.8-2.5) Total Calcium 9.2 mg/dL (8.5-10.1) Troponin I High Sensitivity 23 ng/L (4-50) Influenza Type A Antigen Negative For Type A Influenza Type B Antigen Negative For Type B SARS-CoV-2, RNA, NAAT NEGATIVE SARS CoV-2 Urine Color COLORLESS (YELLOW) Urine Appearance CLEAR (CLEAR) Urine pH 5.0 (5.0-8.0) Urine Specific [place] 1.004 (1.001-1.031) Urine Protein NEGATIVE mg/dL (NEGATIVE) Urine Glucose (UA) NEGATIVE mg/dL (NEGATIVE) Urine Ketones NEGATIVE mg/dL (NEGATIVE) Urine Occult Blood SMALL (NEGATIVE) H Urine Nitrate NEGATIVE (NEGATIVE) Urine Bilirubin NEGATIVE mg/dL (NEGATIVE) Urine Urobilinogen 0.2 mg/dL (0.2-1.0) Urine Leukocyte Esterase NEGATIVE Melissa/uL Urine RBC 0-1 /HPF (0-1) Urine WBC 2-5 /HPF (0-1) H Urine Squamous Epithelial Cells RARE /HPF (0-2) Urine Bacteria None /HPF (None Seen) Urine Other Casts 1 /LPF (None Seen) Labs Reviewed?: Yes EKG Comment: EKG Interpretation: Time Reviewed: 1548 Ventricular rate: 71 bpm VA Interval: 157 ms QRS duration: [address] segment elevation or depression. Clinical impression: sinus rhythm EKG Reviewed and interpreted by Dr. Josephine Schwartz ED Course ED Course Orders Procedure Category Date Status Time Cbc With Differential LAB 02/24/25 Complete 15:49 Basic Metabolic Panel LAB 02/24/25 Complete 15:49 Urinalysis Profile LAB 02/24/25 Complete 15:49 Lactic Acid LAB 02/24/25 Complete 15:49 Troponin I High LAB 02/24/25 Complete Sensitivity 15:49 Influenza Type A & B, LAB 02/24/25 Complete Rapid 15:49 Covid Rna Naat LAB 02/24/25 Complete 15:49 12 Lead Ekg Tracing- EKG 02/24/25 Logged Technical 16:02 Ampicillin 1gm+Ns PHA 02/24/25 Complete 50ml (Ampicillin 1gm+N 17:30 Current Medications Medications (Trade) Dose Ordered Sig/Shelli Route PRN Reason Start Time Stop Time Status Last Admin Dose Admin Ampicillin Sodium (Ampicillin 1gm+NS 50ml) 1 gm ONCE ONCE IV 02/24/25 17:30 02/24/25 17:31 DC 02/24/25 17:59 Vital Signs Date Time Temp Pulse Resp B/P (MAP) Pulse Ox O2 Delivery O2 Flow Rate FiO2 02/24/25 19:30 97.9 70 18 147/58 99 Room Air* 0 21 02/24/25 18:12 97 18 133/68 98 Room Air* 0 21 02/24/25 15:43 97.9 82 18 162/66 97 Room Air 0 Uneventful ED course. She has remained afebrile and normotensive with room air SpO2 97-99%. Twelve lead EKG reflects a sinus rhythm, rate 71; no ST elevation or depression. Review of urine culture dated 02/17 gram-positive cocci; Enterococcus faecalis. Susceptible to nitrofurantoin and ampicillin. Laboratory findings as noted below. Influenza and COVID are negative. No elevation of WBCs. H&H are 11.5/34.9, creatinine 1.2. Troponin negative. While in the ED she received dose ampicillin 1 g. I spoke with her fire systems inspector, Dr. Levi delarosa, who recommended stopping Multaq and resuming her metoprolol 12.5 mg twice daily. She can follow up in the office and/or return to the emergency department for any worsening of symptoms or concerns. Medical Decision Making MDM MDM: Differential diagnosis: UTI, ACS, influenza, COVID, electrolyte derangement, AFib with RVR Rationale: Tests considered and ordered secondary to shared decision making include: Lab, EKG Previous outside records reviewed: Old ER visits. Risk of complication and/or morbidity or mortality of patient management: None Medications-Per medication reconciliation Need for hospitalization: Patient does not meet criteria for hospitalization. Need for emergency major/minor surgery: No There are no social concerns with this patient. Prescription drug management: Continue nitrofurantoin. Stop Multaq. Resume metoprolol 12.5 mg twice daily Prescriptions will include symptomatic care Patient's prior external medical records from other ER visits were reviewed by me as indicated. Prior testing and results from previous visits were reviewed. Prior tests were taken into account with medical decision making and resource utilization, independent historian/historians were used to obtain complete medical history. I independently interpreted the test that were performed, results were reviewed by me and considered findings on radiology if ordered. Medical management and examination interpretation discussions were had by me with other qualified healthcare professionals as indicated for the patient's care. DX & DISP Disposition: Discharge Departure Impression: Primary Impression: UTI (urinary tract infection) Additional Impressions: Fever, Tremor of both hands, History of atrial fibrillation Condition: Stable Additional Instructions: Rest. Drink plenty of fluids. Continue antibiotic as prescribed by your PCP; nitrofurantoin twice daily x7 days. Take antibiotic until gone even if you are feeling better. Continue to monitor tremor/cardiac symptoms for follow up with Dr. Delarosa. I spoke with Dr. Delarosa and she recommends holding Multaq and resuming metoprolol 12.5 mg twice daily. Return to the emergency department for any worsening of symptoms or concerns. Referrals: OWEN MOSES MD (PCP) LEVI DELAROSA MD Time of Disposition: 19:38 RAGHU PAL NP Feb 24, 2025 15:50
[2025-02-24 16:17] LABS: BASOPHILS # (AUTO) 0.03 K/uL (0.00-0.20); BASOPHILS % (AUTO) 0.4 % (0.0-5.0); EOSINOPHILS # (AUTO) 0.12 K/uL (0.00-0.70); EOSINOPHILS % (AUTO) 1.7 % (0.0-8.0); HEMATOCRIT 34.9 % (36-48); IMMATURE GRANULOCYTE ABSOLUTE 0.02 K/uL (0-1); LYMPHOCYTES # (AUTO) 2.2 K/uL (1.0-4.8); LYMPHOCYTES % (AUTO) 31.1 % (21.0-51.0); MEAN CORPUSCULAR HEMOGLOBIN 32.5 pg (27.0-33.0); MEAN CORPUSCULAR VOLUME 98.6 fL (79-99); MONOCYTES # (AUTO) 0.6 K/uL (0.1-1.0); MONOCYTES % (AUTO) 8.5 % (3.0-13.0); PLATELET COUNT (AUTO) 223 K/uL (130-400); RED BLOOD CELL COUNT(AUTO) 3.54 MIL/uL (4.00-5.50); RED CELL DISTRIBUTION WIDTH 12.7 % (11.0-15.5)
[2025-02-24 16:31] LABS: CREATININE 1.2 mg/dL (0.5-1.0); POTASSIUM 4.1 mmol/L (3.5-5.1)
[2025-02-24 17:12] LABS: SARS-CoV-2, RNA, NAAT NEGATIVE SARS CoV-2 (NEGATIVE)
[2025-02-24 17:18] LABS: INFLUENZA TYPE A Negative For Type A (NEGATIVE); INFLUENZA TYPE B Negative For Type B (NEGATIVE)
[2025-02-24 17:25] LABS: APPEARANCE,URINE CLEAR (CLEAR); BILIRUBIN,URINE NEGATIVE (NEGATIVE); COLOR,URINE COLORLESS (YELLOW); GLUCOSE, URINE (UA) NEGATIVE (NEGATIVE); KETONES,URINE NEGATIVE (NEGATIVE); LEUKOCYTE ESTERASE ,URINE NEGATIVE Leu/uL (NEGATIVE); NITRATE,URINE NEGATIVE (NEGATIVE); OCCULT BLOOD,URINE SMALL (NEGATIVE); PROTEIN,URINE NEGATIVE (NEGATIVE); UROBILINOGEN,URINE 0.2 mg/dL (0.2-1.0)
[2025-02-24 17:41] LABS: ADD UA MICROSCOPIC YES
[2025-02-24 17:42] LABS: OTHER CASTS, URINE 1 /LPF (None Seen); RBC,URINE 0-1 /HPF (0-1); SQUAMOUS EPITHELIAL CELL,UR RARE /HPF (0-2)
[2025-02-24] MEDS: AMPICILLIN 1GM+NS 50ML IV ONE (17:59)
[2025-02-24 20:19] VITALS: BP 141/59; PULSE 70; RESP 18; TEMP 97.9; O2SAT 97
--- NOTE | 2025-02-25 06:44 | EKG ---
[facility] Test Date: 2025-02-24 Test Time: 15:49:42 Pat Name: JORJE PALMA Department: ED Room: Gender: F Associate Director Of Nursing: [id number] : 1940 Requested By: ANKIT RIVAS Order Number: [id number] Reading MD: Kt Munoz Measurements Intervals [place] Rate: 71 P: 18 [place]: 157 QRS: 8 QRSD: 90 T: 30 QT: 435 QTc: 473 Interpretive Statements Sinus rhythm Compared to ECG 02/20/2025 14:13:59 No significant changes Electronically Signed On 02-25-2025 15:07:28 CDT by Kt Munoz Please click the below link to view image of tracing.
[2025-02-28] MEDS ORDERED: ATOR10 PO (16:24)
[2025-02-28] MEDS ORDERED: NITR25CA PO (16:24)
[2025-02-28] MEDS ORDERED: TELM40TA8 PO (16:24)
[2025-02-28] MEDS ORDERED: METO25TA6 PO (16:24)
[2025-03-03] MEDS ORDERED: TRAM50TA4 PO (15:09)
[2025-03-03] MEDS ORDERED: SOTA80TA PO (15:09)
[2025-03-05] MEDS ORDERED: BETA15CR6 TP (18:11)
== END 2025-02-24 20:21 | disposition home or self-care (01) ==
LOC: EDH 15:42
DX: N39.0 Urinary tract infection, site not specified (principal); R50.9 Fever, unspecified; R25.1 Tremor, unspecified; I10 Essential (primary) hypertension; I48.91 Unspecified atrial fibrillation; Z79.01 Long term (current) use of anticoagulants; Z79.899 Other long term (current) drug therapy; Z88.6 Allergy status to analgesic agent; Z88.7 Allergy status to serum and vaccine; Z88.8 Allergy status to other drugs, medicaments and biological substances; Z20.822 Contact with and (suspected) exposure to COVID-19
CPT/HCPCS: 99284; 96365; 87635; 84484; 80048; 85025; 87804 ×2; 83605; 81001; 36415; 93005; J0290